=== PATIENT | female | born 1955 | race Caucasian/White ===

== ENCOUNTER 2019-05-11 13:34 | Emergency (ER) | payer OTHER, SELFPAY ==
--- NOTE | ~2019-05-11 | XR_ITS ---
EXAMINATION: XR chest 2V DATE: 05/11/2019 14:40 INDICATION: Chest pain TECHNIQUE: PA and lateral views of the chest are obtained. COMPARISON: 06/30/1913 FINDINGS: The lungs are hyperinflated but free of acute opacities. There are unchanged nodules and sc arring of the left upper lobe. There is no pleural effusion or pneumothorax. The cardiomediastinal si lhouette is normal. There is mild thoracic spondylosis. IMPRESSION: 1. Hyperinflation without acute cardiopulmonary abnormality. Reviewed, dictated and finalized at location A.
--- NOTE | 2019-05-11 13:58 | ED.CHESTPAIN ---
HPI - Chest Pain General Chief Complaint: Chest Pain Stated Complaint: chest pain Time Seen by Provider: 05/11/19 13:54 Source: patient Mode of arrival: ambulatory Limitations: no limitations History of Present Illness HPI narrative: Pt is a 63 y/o female who presents to the ED with c/o lt sided CP that started last night at 8PM. She states that she was watching T.V. when she noticed the pain. She reports associated excessive yawning and notes that when she went to go to sleep at 1030PM she was not able to d/t her yawning. Pt states that she had a similar episode 7 weeks ago. This morning, the pt worked in her garden for 45 minutes and went on a 2 mile walk, which is her usual. Pt reports pain when taking a deep breath, but she denies sweats, fever, chills, N/V, or a cough. She notes that she had pleurisy about 26 years ago but it does not feel the same. Pt has a H/O HLD and hypothyroid. MD complaint: chest pain Onset (ago): hour(s) (17) Onset: during rest Pain location: left chest Pain radiation: none Associated symptoms: other (excessive yawning and pain with deep breath) Related Data Home Medications Medication Instructions Recorded Confirmed alendronate mg PO 05/11/19 atorvastatin 05/11/19 levothyroxine [Synthroid] 05/11/19 Allergies Allergy/AdvReac Type Severity Reaction Status Date / Time ciprofloxacin Allergy Unknown Unknown Verified 05/11/19 14:36 Review of Systems Review of Systems: All systems reviewed & are unremarkable except as noted in HPI and below Constitutional: Constitutional: Denies chills, Denies fever(s) and Denies other (sweats) Cardiovascular: Cardiovascular: Reports chest pain and Reports other (CP with deep breath) Respiratory: Respiratory: Denies cough and Reports other (excessive yawning) Gastrointestinal: Gastrointestinal: Denies nausea and Denies vomiting PMFSH Past Medical History Medical History (Updated 05/11/19 @ 17:29 by Dwight Maynrad MD) Anemia DVT (deep venous thrombosis) HLD (hyperlipidemia) Hypothyroid UTI (urinary tract infection) Surgical History Surgical History (Updated 05/11/19 @ 14:19 by Juan Canales) No significant past surgical history Family History Family History (Updated 04/01/12 @ 13:59 by DOCTOR UNKNOWN) Other Family history of seizure disorder Social History Social History Smoking status: Never smoker Alcohol intake: current Gender identity (if verbalized by the patient): Female Exam Const: General: healthy appearing, no acute distress and well developed Nutritional Appearance: well nourished Orientation/consciousness: patient oriented x3 (alert) and Other orientation findings (Alert) Limitations: no limitations HENMT: Head: normocephalic and atraumatic Ears: external ears normal General nose exam: No nasal discharge present and no epistaxis Face and sinus: face symmetric Mouth: Yes lip normal Eyes: Conjunctivae: conjunctivae normal Sclera: sclerae normal EOM: EOMs intact bilaterally Neck: Neck: full ROM Chest: Chest palpation & inspection: no tenderness and other (CP not reproducible with palpation of left chest wall) Resp: Effort & Inspection: normal respiratory effort Auscultation: clear to auscultation bilaterally, no rales, no rhonchi, no wheezes and other (breath sounds equal) Cardio: Rate: regular rate Rhythm: regular rhythm Heart sounds: no gallops and no murmurs GI: Inspection: non-distended GI Palp: No abdominal tenderness and Yes Soft to palpation Auscultation: other (bowel sounds present) : General: Yes no CVA tenderness Back/Spine/Pelvis: Back: no CVA tenderness Thoracic/Lumbar Spine: thoracic and lumbar spine normal to inspection Skin: General skin exam: normal color and no rashes or lesions noted Neuro: General: patient oriented x3 (alert), moves all extremities and no focal motor deficits Cranial nerves: Yes facial symmetry Speech: n
[2019-05-11 14:30] VITALS: BP 144/74; PULSE 82; RESP 18; TEMP 36.1; O2SAT 100
[2019-05-11 14:34] VITALS: PULSE 82
[2019-05-11 14:38] LABS: Basophils Percent Auto 0.3 % (0.2-1.2); Eosinophils Absolute Auto 0.1 K/mm3 (0-0.3); Eosinophils Percent Auto 1.3 % (0-4.4); Hematocrit 39.2 % (37.0-47.0); Hemoglobin 12.3 g/dL (12.0-15.0); Immature Granulocyte Absolute 0.02 K/mm3 (0.00-0.031); Immature Granulocyte Percent A 0.3 % (0-0.5); Lymphocytes Absolute Auto 1.31 K/mm3 (0.9-3.2); Lymphocytes Percent Auto 17.5 % (18.3-44.2); Mean Corpuscular HGB Conc 31.4 g/dl (32-36); Mean Corpuscular Hemoglobin 29.9 pg (26-34); Mean Corpuscular Volume 95.1 fl (80-100); Mean Platelet Volume 10.7 fl (7.4-10.4); Monocytes Absolute Auto 0.5 K/mm3 (0.1-0.6); Monocytes Percent Auto 6.6 % (2.6-8.5); Neutrophils Absolute Auto 5.5 K/mm3 (1.3-6.7); Platelet Count Result 203 k/mm3 (150-375); Red Blood Count 4.12 M/mm3 (4.2-5.4); Red Cell Distribution Width 13.3 % (11.5-14.5); White Blood Count 7.5 K/mm3 (4.5-10.0)
[2019-05-11 14:52] LABS: Prothrombin Time 12.4 Seconds (11.1-14.7)
[2019-05-11 14:55] LABS: Blood Urea Nitrogen 22 mg/dL (7-17); Carbon Dioxide 30 mmol/L (22-30); Chloride 104 mmol/L (98-107); D Dimer 0.34 ug/mL (<0.48); Estimated CRCL calculation 54 ml/min; Estimated Glomerular Filt Rate > 60; Glucose 96 mg/dL (65-105); Potassium 3.8 mmol/L (3.4-5.0); Sodium 137 mmol/L (137-145)
[2019-05-11] MEDS: KETOROLAC 30 MG/ML VIAL (*BKC) (14:55)
[2019-05-11 15:05] LABS: Troponin I < 0.012 ng/mL (0.000-0.034)
--- NOTE | 2019-05-11 15:38 | ECG_ITS ---
Measurements Intervals [place] Rate: 75 P: 74 W[place]: 151 QRS: 73 QRSD: 92 T: 48 QT: 370 QTc: 415 Interpretive Statements SINUS RHYTHM POSSIBLE LEFT ATRIAL ENLARGEMENT BORDERLINE ECG Electronically Signed On 05-11-2019 17:37:17 CDT by Erickson Shepherd D.O.
[2019-05-11 16:11] VITALS: BP 132/84; PULSE 77; RESP 18; O2SAT 98
[2019-05-11 17:38] VITALS: BP 121/77; PULSE 73; RESP 17; O2SAT 98
== END 2019-05-11 18:02 | disposition home or self-care (01) ==
PROVIDERS: Emergency Provider Emergency Medicine; PCP Physician Assistant
DX: R07.89 Other chest pain (principal); Z86.718 Personal history of other venous thrombosis and embolism; E78.5 Hyperlipidemia, unspecified; E03.9 Hypothyroidism, unspecified; Z87.440 Personal history of urinary (tract) infections; R94.31 Abnormal electrocardiogram [ECG] [EKG]
CPT/HCPCS: 36415; 71046; 80048; 84484; 85025; 85380; 85610; 93005; 96374; 99284; J1885

== ENCOUNTER → 2020-01-12 10:52 | Outpatient (CLI) | payer OTHER, SELFPAY ==
--- NOTE | ~2020-01-12 | CT_ITS ---
EXAMINATION: CT abdomen pelvis wo/w con DATE: 01/12/2020 11:39 INDICATION: Microscopic hematuria TECHNIQUE: Computed tomography (CT) of the abdomen and pelvis was performed without and with 130 cc O mnipaque 350 intravenous contrast. The dose-length product was 702.42 mGy-cm. Automated exposure cont rol and iterative reconstruction technique were employed. COMPARISON: CT dated 08/26/2015 FINDINGS: Lung bases are unremarkable. No significant pleural or pericardial effusion. No significant vascular abnormality. No lymphadenopathy. There are small low-density lesions in the left kidney, mo st likely cysts. The liver, spleen, pancreas, adrenal glands and kidneys are unremarkable. Gallbladder is present. Non obstructive bowel gas pattern. Moderate colonic fecal loading. No renal stones or ureteral stones. No hydronephrosis. Bladder is unremarkable. No free air or free fluid. No acute osseous abnormality. No significant vascular abnormality. No lymphadenopathy. No free air and free fluid. IMPRESSION: 1. No acute abnormality. No findings to account for hematuria. Reviewed, dictated and finalized at location B. [employer]
[2020-01-12 11:15] LABS: Estimated Glomerular Filt Rate > 60
== END ==
PROVIDERS: PCP Physician Assistant; Visit Provider Physician Assistant
DX: R31.29 Other microscopic hematuria (principal)
CPT/HCPCS: 74178; Q9967

== ENCOUNTER → 2020-02-25 12:25 | Outpatient (CLI) | payer OTHER, SELFPAY ==
--- NOTE | ~2020-02-25 | DEXA_ITS ---
Bone Density Report Name: Ashley Charles Age: 64 Sex: Female Ethnicity: White Date of : 1955 Indication: osteopenia; monitoring treatment; postmenopausal Referring Provider: Fauzia, Néstor Study: Bone densitometry was performed. Exam Date: February 25, 2020 Accession number: [id number] Bone Density: Region BMD T-score Z-score Classification AP Spine (L1-L4) 0.813 -2.1 -0.4 Osteopenia Femoral Neck (Left) 0.635 -1.9 -0.4 Osteopenia Total Hip (Left) 0.771 -1.4 -0.2 Osteopenia Femoral Neck (Right) 0.630 -2.0 -0.5 Osteopenia Total Hip (Right) 0.739 -1.7 -0.5 Osteopenia Total Hip Mean 0.755 -1.6 -0.4 Osteopenia World Health Organization criteria for BMD impression classify patients as: Normal (T-score at or above -1.0), Osteopenia (T-score between -1.0 and -2.5), or Osteoporosis (T-score at or below -2.5). 10-year Fracture Risk: FRAX not reported because: Treated for osteoporosis Previous Exams: Region Exam Age BMD T-score BMD Change BMD Change Date g/cm2 vs Baseline vs Previous AP Spine(L1-L4) 02/25/2020 64 0.813 -2.1 0.047* 0.015 08/27/2017 62 0.798 -2.3 0.032* 0.032* 04/18/2011 55 0.766 -2.6 Total Hip(Left) 02/25/2020 64 0.771 -1.4 0.010 -0.018 08/27/2017 62 0.789 -1.3 0.028* 0.028* 04/18/2011 55 0.761 -1.5 Total Hip(Right) 02/25/2020 64 0.739 -1.7 0.014 0.003 08/27/2017 62 0.736 -1.7 0.011 0.011 04/18/2011 55 0.725 -1.8 *Denotes significance at 95% confidence level, LSC for AP Spine = 0.022 g/cm2, LSC for Total Hip = 0.027 g/cm2 Clinical Information Provided by Patient: Is being treated for osteoporosis Has used the following medications: Fosamax (i.e. alendronate), Vitamin D, Calcium, SYNTHROID Patient maximum height was 63.5 Menopause Age: 54 Drinks caffeinated beverages Onset of menses at age 13 Number of children 2 Impression: The patient has low bone mass, based on the Total Spine T-score. No significant bone loss was observed. Discussion: PATIENT UNDER TREATMENT WITH NO SIGNIFICANT BMD LOSS SINCE LAST EXAM. In an untreated patient, BMD typically declines with age. A lack of decline or gain is usually a sign that treatment is efficacious and fracture risk is reduced. It is important to ask patients whether they are taking their medications and to encourage continued and appropriate complian
== END ==
PROVIDERS: PCP Physician Assistant; Visit Provider Physician Assistant
DX: M85.88 Other specified disorders of bone density and structure, other site (principal); M85.852 Other specified disorders of bone density and structure, left thigh; M85.851 Other specified disorders of bone density and structure, right thigh
CPT/HCPCS: 77080

== ENCOUNTER → 2020-07-20 15:16 | Outpatient (CLI) | payer MEDICARE, SELFPAY ==
--- NOTE | ~2020-07-20 | MM_ITS ---
EXAMINATION: MM screening lit BI w jeanette HISTORY: Screening mammogram TECHNIQUE: Craniocaudal and mediolateral oblique 3-D tomosynthesis images were obtained and synthetic 2-D images were generated. CAD analysis was submitted and interpreted. COMPARISON: No prior mammogram is available for comparison at this institution. BREAST PARENCHYMAL COMPOSITION: The breasts are heterogeneously dense, which may obscure small masses . FINDINGS: There is no evidence of suspicious mass, calcification, or architectural distortion to sugg est malignancy in either breast. There has been no suspicious interval change. IMPRESSION: 1. No mammographic evidence of malignancy. 2. Recommend routine screening mammography in one year. BI-RADS Category 1: Negative Reviewed, dictated and finalized at location A.
== END ==
PROVIDERS: PCP Physician Assistant; Visit Provider Nurse Practitioner
DX: Z12.31 Encounter for screening mammogram for malignant neoplasm of breast (principal)
CPT/HCPCS: 77063; 77067

== ENCOUNTER → 2021-12-07 09:14 | Outpatient (CLI) | payer MEDICARE, SELFPAY ==
--- NOTE | ~2021-12-07 | CT_ITS ---
EXAMINATION: CT abdomen pelvis w con DATE: 12/07/2021 09:46 INDICATION: Right lower quadrant bulge. Right inguinal hernia is suspected. TECHNIQUE: Computed tomography (CT) of the abdomen and pelvis was performed with 100 CC Omnipaque 350 intravenous contrast. Automated exposure control and iterative reconstruction technique were employe d. Exam dose: 309.78 mGy-cm total exam DLP. COMPARISON: None. FINDINGS: There is minimal bilateral lower lobe dependent atelectasis, right greater than left. No co nsolidation at the lung bases. Normal heart size. No pericardial or pleural effusion. The liver, spleen, pancreas, adrenal glands are unremarkable. No bile duct or pancreatic duct dilatat ion. Several probable renal cysts, measuring up to 8 mm. No urinary tract calculus or hydroureteronephrosi s. Normal caliber of the abdominal aorta. No intraperitoneal or retroperitoneal or pelvic mass lesion or adenopathy or ascites. There is a prominent of fecal material in the colon but no bowel obstruction. No intraperitoneal free air. The uterus, adnexal areas and urinary bladder are unremarkable. Small fat-containing inguinal hernia. No inguinal hernias detected. No suspicious osteolytic or osteoblastic lesions. IMPRESSION: 8 mm or smaller renal cysts Reviewed, dictated and finalized at Location A. Reviewed, dictated and finalized at location A. IMPRESSION: 8 mm or smaller renal cysts
[2021-12-07 09:36] LABS: Estimated Glomerular Filt Rate > 60
== END ==
PROVIDERS: PCP Physician Assistant; Visit Provider Physician Assistant
DX: K40.90 Unilateral inguinal hernia, without obstruction or gangrene, not specified as recurrent (principal); N28.1 Cyst of kidney, acquired
CPT/HCPCS: 74177; Q9967

== ENCOUNTER → 2022-03-21 15:20 | Outpatient (CLI) | payer MEDICARE, SELFPAY ==
--- NOTE | ~2022-03-21 | DEXA_ITS ---
Bone Density Report Name: EIR MEANS Age: 66 Sex: Female Ethnicity: White Date of : 1955 Indication: osteopenia; monitoring treatment; postmenopausal Referring Provider: BALDO, CHEL Study: Bone densitometry was performed. Exam Date: March 21, 2022 Accession number: [id number] Bone Density: Region BMD T-score Z-score Classification AP Spine (L1-L4) 0.811 -2.1 -0.3 Osteopenia Femoral Neck (Left) 0.628 -2.0 -0.4 Osteopenia Total Hip (Left) 0.784 -1.3 0.0 Osteopenia Femoral Neck (Right) 0.655 -1.7 -0.1 Osteopenia Total Hip (Right) 0.745 -1.6 -0.3 Osteopenia Total Hip Mean 0.765 -1.5 -0.2 Osteopenia World Health Organization criteria for BMD impression classify patients as: Normal (T-score at or above -1.0), Osteopenia (T-score between -1.0 and -2.5), or Osteoporosis (T-score at or below -2.5). 10-year Fracture Risk: FRAX not reported because: Treated for osteoporosis Previous Exams: Region Exam Age BMD T-score BMD Change BMD Change Date g/cm2 vs Baseline vs Previous AP Spine(L1-L4) 03/21/2022 66 0.811 -2.1 0.045* -0.002 02/25/2020 64 0.813 -2.1 0.047* 0.015 08/27/2017 62 0.798 -2.3 0.032* 0.032* 04/18/2011 55 0.766 -2.6 Total Hip(Left) 03/21/2022 66 0.784 -1.3 0.023 0.013 02/25/2020 64 0.771 -1.4 0.010 -0.018 08/27/2017 62 0.789 -1.3 0.028* 0.028* 04/18/2011 55 0.761 -1.5 Total Hip(Right) 03/21/2022 66 0.745 -1.6 0.020 0.006 02/25/2020 64 0.739 -1.7 0.014 0.003 08/27/2017 62 0.736 -1.7 0.011 0.011 04/18/2011 55 0.725 -1.8 *Denotes significance at 95% confidence level, LSC for AP Spine = 0.022 g/cm2, LSC for Total Hip = 0.027 g/cm2 Clinical Information Provided by Patient: Is being treated for osteoporosis Has used the following medications: Fosamax (i.e. alendronate), Vitamin D, Calcium, SYNTHROID Patient maximum height was 63.5 Menopause Age: 54 Drinks caffeinated beverages Onset of menses at age 13 Number of children 2 Impression: The patient has low bone mass, based on the Total Spine T-score. No significant bone loss was observed. Discussion: PATIENT UNDER TREATMENT WITH NO SIGNIFICANT BMD LOSS SINCE LAST EXAM. In an untreated patient, BMD typically declines with age. A lack of decline or gain is usu
== END ==
PROVIDERS: PCP Physician Assistant; Visit Provider Physician Assistant
DX: M85.88 Other specified disorders of bone density and structure, other site (principal); M85.852 Other specified disorders of bone density and structure, left thigh; M85.851 Other specified disorders of bone density and structure, right thigh
CPT/HCPCS: 77080

== ENCOUNTER 2022-03-30 02:09 | Day surgery (SDC) | payer MEDICARE, SELFPAY ==
--- NOTE | 2022-03-23 10:13 | PC.NURSE ---
Report to the Outpatient Waiting Room, entrance under the green pavilion located off [facility], at time __1000 on date _03/30/22 . Planned Procedure Time: __1200 . Time changes happen often and if your time is changed the preop area will call you the afternoon before. - You and your visitor will be asked to self-screen and do not enter if you have any COVID symptoms. - Only one visitor is requested with a max of two and NO children visitors are allowed at this time. - The patient visitor may be requested to leave or wait in car when not with patient due to distancing restrictions. - A mask is optional within the hospital at this time. Patients may have clear liquids (water, carbonated beverages, clear teas, apple juice) until 3 hours prior to surgery (0900 AM) with a maximum of 20 ounces. - No food from midnight until time of surgery - Infants may have breast milk until 4 hours before surgery, infant formula 6 hours prior to surgery. - Children will be allowed to drink immediately following surgery. If applicable, please bring a bottle or sippy cup to assist with drinking. Juice, water, soda, and popsicles are readily available. For infants on formula, please bring formula the day of surgery. Pacifiers are allowed. Take the following medications with a SIP of water the morning of surgery: __LEVOTHYROXINE__ DO NOT STOP ANY OF YOUR OTHER PRESCRIPTION MEDICATIONS PRIOR TO SURGERY ?EXCEPT THE FOLLOWING Medications to discontinue per physician VITAMINS 3 DAYS PRIOR TO SURGERY Date to take last dose___03/26/22 Please no make-up, nail mozambican, hairspray, perfume, deodorant, or body powder the day of surgery. No jewelry (including any body piercings) or valuables the day of surgery, leave them at home. Please take a shower or bath the night before, or the morning of, surgery with an antibacterial soap. Wear comfortable, loose fitting clothing. Children are encouraged to wear pajamas. - Jewelry must be removed prior to entering the operating room. Rings and piercings that are not removed may be cut off. - The hospital will not accept responsibility for valuables. - Please leave all valuables, including medications, at home the day of surgery. If you are going home after surgery, a licensed local combination truck driver must drive you home. - NO public transportation without another adult if you receive anesthesia. - We recommend that an adult stay with you for 24 hours following discharge. - We also recommend that you do not drive, make important decision, drink alcoholic beverages, or take any drugs that were not prescribed by your health care provider for at least 24 hours after your discharge time. For Pediatric surgeries, we recommend two adults accompany the child home. Follow any additional instructions given to you from your surgeon. HIBICLENS SHOWER NIGHT BEFORE AND AM OF SURGERY If you or anyone in your household have experienced Covid symptoms in the past week, please notify your surgeon or the nurse liaison at the phone number below for possible testing. Telephone instructions given to ___PATIENT and asked if any additional questions and then verbalized understanding. Patient advised to call surgeon office or pre surgery nurse liaison [phone] if any additional questions.
--- NOTE | 2022-03-27 13:58 | PM.SD2 ---
Same Day Admit/Disch: HPI History of Present Illness Narrative: Ashley Charles is a 66 year old female who moved her mother into assisted living last October. She moved a lot of boxes and afterwards noticed some discomfort and a bulge in the right groin. She was seen in the office and found to have a reducible right inguinal hernia. She is taken to surgery at this time for right inguinal hernia repair as an outpatient under anesthesia. [facility] Past Medical History Medical History Anemia DVT (deep venous thrombosis) HLD (hyperlipidemia) Hypothyroid UTI (urinary tract infection) Surgical History Surgical History No significant past surgical history Family History Family History Other Family history of seizure disorder Social History Social History Smoking status: Never smoker Second hand tobacco smoke exposure: No Alcohol intake: current Drinks per week: 10 Alcohol use details: WINE Substance use: never Substance use type: does not use Living arrangements: with family Gender identity (if verbalized by the patient): Female Spiritual care concerns: No Same Day Admit/Disch: Med Pre-admit Medications Home Medications Medication Instructions Recorded Confirmed Type alendronate 70 mg tablet 70 mg PO WEEKLY 05/11/19 03/23/22 History atorvastatin 20 mg tablet 20 mg EVERY OTHER DAY 05/11/19 03/23/22 History levothyroxine 100 mcg tablet 100 mcg QAM 05/11/19 03/30/22 History (Synthroid) chlorhexidine gluconate 4 % See Rx Instructions .Route 02/13/22 03/23/22 Rx topical liquid (Hibiclens) .COMPLEX #118 mL aspirin 81 mg tablet,delayed 81 mg PO HS 03/23/22 03/23/22 History release calcium carbonate 600 mg-vitamin 1 tablet PO DAILY 03/23/22 03/23/22 History D3 5 mcg (200 unit) tablet cholecalciferol (vitamin D3) 25 25 mcg PO DAILY 03/23/22 03/23/22 History mcg (1,000 unit) capsule cyanocobalamin (vitamin B-12) 500 500 mcg PO DAILY 03/23/22 03/23/22 History mcg tablet estradiol 10 mcg vaginal insert 10 mcg vaginal 2XW 03/23/22 03/23/22 History hydrocodone 5 mg-acetaminophen 325 1 - 2 tablet PO Q6H PRN pain #7 03/30/22 Rx mg tablet tabs ibuprofen 600 mg tablet 600 mg PO Q6H PRN pain #14 tabs 03/30/22 Rx Exam Const: General: comfortable, no acute distress, alert and awake HENMT: Head: normocephalic and atraumatic Mouth: Yes Normal oral and palatal mucosa present Eyes: Conjunctivae: conjunctivae normal Pupils: Equal, round and reactive pupils present EOM: EOMs intact bilaterally Neck: Neck: normal visual inspection, no lymphadenopathy and nontender Resp: Effort & Inspection: normal respiratory effort Auscultation: clear to auscultation bilaterally Cardio: Rate: regular rate Rhythm: regular rhythm Heart sounds: no gallops, no murmurs and no rubs GI: Inspection: non-distended and visible herniation (Right groin) GI Palp: Yes Soft to palpation, No Tenderness to palpation present (GI), No Hepatomegaly present, No Splenomegaly present and Yes Hernia present (Reducible right inguinal hernia) Auscultation: normal bowel sounds Skin: Lesions: no lesions Rashes: no rashes Neuro: General: no focal motor deficits and CN's II-XI intact bilaterally Cranial nerves: Yes Equal, round and reactive pupils present, Yes Bilaterally intact EOM present, Yes facial symmetry and Yes Midline tongue present Speech: normal speech Motor exam (neuro): 5/5 motor strength present throughout and Motor abnormalities not present Extrem: General: no clubbing, cyanosis or edema and edema Psych: Affect: normal affect Thought process: Normal thought process present Insight: Good insight present (Psych) DS: Summary Time Spent with Patient Time attestation: Total time spent providing
[2022-03-30] MEDS: KETOROLAC 15 MG/ML VIAL (*BKC) IV PUSH (11:00)
[2022-03-30] MEDS: ACETAMINOPHEN 500 MG TABLET 1000 MG PO (11:00)
[2022-03-30 11:03] VITALS: BP 117/71; PULSE 74; RESP 14; TEMP 36.8; O2SAT 100
--- NOTE | 2022-03-30 11:43 | WPDHPUPDATE1 ---
History and Physical Update Update Date/Time: 03/30/22 11:43 History and Physical has been reviewed, including an updated exam of the patient. There are NO changes in the patient's condition. Risks, benefits, and alternatives have been discussed and questions answered. Patient agrees to proceed with procedure.
--- NOTE | 2022-03-30 11:55 | WPDANESEPPF ---
Anes - Initial Pre Proc Eval Procedure: Operation Date: 03/30/22 12:00 Proposed Procedures p Right Inguinal Hernia Repair - Niraj Wallace MD Date/Time: 03/30/22 11:55 Surgeon: Niraj Wallace MD Pre Op Diagnosis: Rt Ing Hernia Patient Data Age: 66 Gender: F Height: 1.61 m Weight: 53.5 kg Last Vital Signs Temp 98.3 F 03/30/22 11:03 Pulse 74 03/30/22 11:03 Resp 14 03/30/22 11:03 BP 117/71 03/30/22 11:03 Pulse Ox 100 03/30/22 11:03 O2 Del Method Room Air 03/30/22 11:03 Allergies Allergy/AdvReac Type Severity Reaction Status Date / Time No Known Allergies Allergy Verified 03/30/22 11:14 Home Medications Medication Instructions Recorded Confirmed Type alendronate 70 mg tablet 70 mg PO WEEKLY 05/11/19 03/23/22 History atorvastatin 20 mg tablet 20 mg EVERY OTHER DAY 05/11/19 03/23/22 History levothyroxine 100 mcg tablet 100 mcg QAM 05/11/19 03/30/22 History (Synthroid) chlorhexidine gluconate 4 % See Rx Instructions .Route 02/13/22 03/23/22 Rx topical liquid (Hibiclens) .COMPLEX #118 mL aspirin 81 mg tablet,delayed 81 mg PO HS 03/23/22 03/23/22 History release calcium carbonate 600 mg-vitamin 1 tablet PO DAILY 03/23/22 03/23/22 History D3 5 mcg (200 unit) tablet cholecalciferol (vitamin D3) 25 25 mcg PO DAILY 03/23/22 03/23/22 History mcg (1,000 unit) capsule cyanocobalamin (vitamin B-12) 500 500 mcg PO DAILY 03/23/22 03/23/22 History mcg tablet estradiol 10 mcg vaginal insert 10 mcg vaginal 2XW 03/23/22 03/23/22 History Patient hx anesthesia problems: none Family hx anesthesia problems: none Results Review: All pre-operative results and documents have been reviewed as part of the pre-operative evaluation. [facility] Past Medical History Medical History Anemia DVT (deep venous thrombosis) HLD (hyperlipidemia) Hypothyroid UTI (urinary tract infection) Surgical History Surgical History No significant past surgical history Family History Family History Other Family history of seizure disorder Social History Social History Smoking status: Never smoker Second hand tobacco smoke exposure: No Alcohol intake: current Drinks per week: 10 Alcohol use details: WINE Substance use: never Substance use type: does not use Living arrangements: with family Gender identity (if verbalized by the patient): Female Spiritual care concerns: No Anes - Eval Final PreProcedure Day of Procedure 03/30/22 11:55 Patient weight: normal Heart: regular rate and rhythm Lungs: clear to auscultation Airway: Mallampati scale class II Neurological: alert and oriented Last oral intake: >/= 8 hours ASA classification: II Emergent: no Anesthetic plan: proceed Anesthesia type and monitoring: general GIVS and standard monitoring Results Review: All pre-operative results and documents have been reviewed as part of the pre-operative evaluation. Informed Consent: The patient's anesthetic plan and its attendant risks and benefits were discussed with the patient/family/POA. Questions were solicited and answers provided to the satisfaction of the patient/family/POA.
[2022-03-30] MEDS: LACTATED RINGERS 1,000 ML 30 ML IV CONT ×2 (12:00→13:07)
[2022-03-30] MEDS: ceFAZolin 2 GM/D5W 50 ML 2 GM/50 ML BAG IVPB (12:06)
[2022-03-30] MEDS: LIDO 1%/EPINEPHRINE 1:100,000 20 ML VIAL INFILTRATE (12:59)
[2022-03-30 13:07] VITALS: BP 87/52; PULSE 97; RESP 19; O2SAT 98
--- NOTE | 2022-03-30 13:10 | P.OP_ITS ---
Procedure Note - Detailed Date of Procedure 03/30/22 Pre-op Diagnosis Rt Ing Hernia Post-op Diagnosis Same Procedure Performed Right inguinal hernia repair with PerFix Light plug and patch Surgeon Niraj Wallace MD Curriculum Coach Tess PARISI Anesthesia General ( G IV S) and Local ( 1% lidocaine with epinephrine) Indications patient was moving a lot of heavy boxes and noticed some pain in her right groin. Soon thereafter noticed a bulge in the area. She was seen in the office and found to have a right inguinal hernia. She is taken to surgery now for repair Findings an indirect right inguinal hernia was noted. Description of Procedure Patient was taken to surgery and anesthesia was introduced. The right groin was prepped and draped. The proposed incision was marked on the skin. Local was infiltrated into the area of the anticipated incision and in the deeper subcutaneous tissues. Incision was made and dissection was carried down through the subcutaneous. Crossing veins were cauterized and divided. Dissection was carried through Devorah's fascia and down to the external oblique aponeurosis. The aponeurosis was exposed as was the external ring. We infiltrated additional local deep to the aponeurosis in the area of the inguinal canal. The aponeurosis was then opened laterally and extended medially through the external ring. The leaves of the aponeurosis were then carefully dissected free from the inguinal canal contents. The hernia as well as some associated lipomatous tissue were found easily. We dissected these free from the round ligament and dissected back to the internal ring. I removed the lipomatous tissue and amputated it with the cautery. It was discarded. I then dissected out the hernia sac more thoroughly. I tried to dissected from the round ligament but the round ligament was actually part of the lateral wall of the hernia sac. I then amputated the round ligament just away from the hernia sac. I then dissected the hernia sac back to a high dissection. I removed some additional lipomatous tissue from the area. The sac was then dunked into the retroperitoneum. The ilioinguinal nerve was carefully preserved and was left attached to the round ligament over most of the inguinal canal. A large PerFix Light plug was then placed in the defect. The edges of the plug was sutured to the transversalis fascia with interrupted 3-0 Vicryl suture. The defect was partially closed with 3-0 Vicryl suture as well. We then cut the patch to the appropriate size and laid over the inguinal canal floor. The lateral leaves p assed beyond the internal ring. The 1st piece of Xaracoll was then placed over the patch. The ilioinguinal nerve in the rest of the round ligament was then laid over the Xaracoll. The external oblique aponeurosis was then closed with interrupted 3-0 Vicryl suture. The 2nd piece of Xaracoll was placed over the aponeurosis. Devorah's fascia was closed with interrupted 3-0 Vicryl suture. The last pieces Xaracoll was placed in the subcutaneous. The skin was loosely approximated with subcuticular 4-0 Vicryl skin stitches. Skin was finally closed with a running 4-0 Monocryl skin suture. The wound was dressed with Exofin surgical adhesive. The patient was awakened and taken to outpatient surgery in good condition. Sponge and needle counts were correct x2. Estimated Blood Loss -2 Drains No Packing No Pathology None sent Complications No immediate complications Condition Stable Disposition Same day [facility] Billing Surgery - Charge Forward: Surgery Billing ( Right inguinal hernia repair)
[2022-03-30 13:30] VITALS: BP 107/54; PULSE 77; RESP 18
[2022-03-30 14:00] VITALS: BP 105/64; PULSE 75; RESP 18
== END 2022-03-30 14:25 | disposition home or self-care (01) ==
PROVIDERS: PCP Physician Assistant; Visit Provider Surgery
PROC: (CPT 49505; principal; 2022-03-30 12:00)
DX: K40.90 Unilateral inguinal hernia, without obstruction or gangrene, not specified as recurrent (principal); E03.9 Hypothyroidism, unspecified; E78.5 Hyperlipidemia, unspecified; Z86.718 Personal history of other venous thrombosis and embolism; Z79.82 Long term (current) use of aspirin
CPT/HCPCS: 49505; A9270; C1781; J0690; J1885; J2704; J3010; J7120

== ENCOUNTER → 2022-08-22 15:21 | Outpatient (CLI) | payer MEDICARE, SELFPAY ==
--- NOTE | ~2022-08-22 | MM_ITS ---
EXAMINATION: MM screening lit BI w jeanette HISTORY: Screening mammogram TECHNIQUE: Craniocaudal and mediolateral oblique 3-D tomosynthesis images were obtained and synthetic 2-D images were generated. CAD analysis was submitted and interpreted. COMPARISON: 07/20/2020 and 06/26/2018 BREAST PARENCHYMAL COMPOSITION:The breasts are heterogeneously dense, which may obscure small masses. FINDINGS: No suspicious mass, calcification, or architectural distortion are identified in either sherman ast to suggest malignancy. There has been no suspicious interval change. IMPRESSION: No mammographic evidence of malignancy. Recommend routine screening mammography in one year. BI-RADS Category 1: Negative Reviewed, dictated and finalized at location .
== END ==
PROVIDERS: PCP Nurse Practitioner; Visit Provider Nurse Practitioner
DX: Z12.31 Encounter for screening mammogram for malignant neoplasm of breast (principal)
CPT/HCPCS: 77063; 77067

== ENCOUNTER 2023-10-15 08:23 | Emergency (ER) | payer MEDICARE, SELFPAY ==
[2023-10-15 08:39] VITALS: BP 138/70; PULSE 80; RESP 16; TEMP 36.9; O2SAT 100
--- NOTE | 2023-10-15 08:51 | ED.GENADULT ---
HPI - General Adult General Chief complaint: Unspecified Stated complaint: pain left side by ribs Time Seen by Provider: 10/15/23 09:02 Source: patient Mode of arrival: ambulatory Limitations: no limitations History of Present Illness HPI narrative: 68-year-old female presents with concern for left chest wall pain. She reports pain is a 1/10 at rest but when she takes deep breath or turns in certain ways it increases. She denies any redness, warmth, rash, bruising in the area. Denies tenderness. She denies injury or trauma. Denies any recent cough, shortness of breath. Denies palpitations. She reports history of pleurisy many years ago. Reports ibuprofen improves her symptoms. MD complaint: Chest wall pain Related Data Home Medications Medication Instructions Recorded Confirmed alendronate 70 mg tablet 70 mg PO WEEKLY 05/11/19 10/15/23 atorvastatin 20 mg tablet 20 mg EVERY OTHER DAY 05/11/19 10/15/23 aspirin 81 mg tablet,delayed 81 mg PO HS 03/23/22 10/15/23 release calcium carbonate 600 mg-vitamin 1 tablet PO DAILY 03/23/22 10/15/23 D3 5 mcg (200 unit) tablet cholecalciferol (vitamin D3) 25 25 mcg PO DAILY 03/23/22 10/15/23 mcg (1,000 unit) capsule cyanocobalamin (vitamin B-12) 500 500 mcg PO DAILY 03/23/22 10/15/23 mcg tablet estradiol 10 mcg vaginal insert 10 mcg vaginal 2XW 03/23/22 10/15/23 ciprofloxacin HCl 500 mg tablet 500 mg PO DAILY 10/15/23 10/15/23 levothyroxine 88 mcg tablet 88 mcg PO DAILY 10/15/23 10/15/23 Allergies Allergy/AdvReac Type Severity Reaction Status Date / Time No Known Allergies Allergy Verified 10/15/23 08:37 Review of Systems Review of Systems: CONSTITUTIONAL: Denies malaise, chills, sweats, or fever. EYES: Denies visual changes, redness, or discharge. CARDIOVASCULAR: Denies chest pain, palpitations, or edema. Reports left chest wall pain with breathing RESPIRATORY: Denies cough or dyspnea. GASTROINTESTINAL: Denies abdominal pain, nausea, vomiting SKIN: Denies rash or itching. MUSCULOSKELETAL: Denies back pain All systems reviewed & are unremarkable except as noted in HPI and below PMFSH Past Medical History Medical History Anemia DVT (deep venous thrombosis) HLD (hyperlipidemia) Hypothyroid UTI (urinary tract infection) Surgical History Surgical History H/O right inguinal hernia repair 03/30/22 Right inguinal hernia repair with PerFix Light plug and patch Family History Family History Other Family history of seizure disorder Social History Social History Smoking status: Never smoker Second hand tobacco smoke exposure: No Alcohol intake: current Drinks per week: 10 Alcohol use details: WINE Substance use: never Substance use type: does not use Living arrangements: with family Gender identity (if verbalized by the patient): Female Spiritual care concerns: No Comments At time of signature, agree with nursing past medical, surgical, social and family history. There is no relevant family history pertinent to the presenting complaint Exam Narrative: GENERAL: Well-appearing, well-nourished, and in no acute distress. HEAD: Normocephalic, atraumatic. EYES: PERRLA, sclera clear ENT: Nares clear. Mucous membranes moist. NECK: Supple. No lymphadenopathy. CHEST: No respiratory distress. Clear to auscultation. No bony deformities, no asymmetry. Speaks in full sentences. HEART: Regular rate and rhythm. No murmur heard. Normal peripheral pulses. EXTREMITIES: Normal range of motion. No edema. Normal strength and sensation. SKIN: Warm, dry, no visible rash, bruising, redness, warmth to the chest wall. NEURO: Alert and oriented x3. PSYCH: Normal mood and affect Course Course Emergency Course: Patient is aware o
--- NOTE | 2023-10-15 09:02 | ECG_ITS ---
Test Date: 2023-10-15 09:15:05 Measurements Intervals [place] Rate: 70 P: 81 LA: 159 QRS: 81 QRSD: 102 T: 70 QT: 359 QTc: 390 Interpretive Statements SINUS RHYTHM POSSIBLE LEFT ATRIAL ENLARGEMENT BASELINE ARTIFACT- I, AVL BORDERLINE ECG No previous ECG available for comparison Electronically Signed On 10-15-2023 10:43:12 CDT by Erickson Shepherd D.O.
== END 2023-10-15 09:20 | disposition home or self-care (01) ==
PROVIDERS: Emergency Provider Nurse Practitioner; PCP Physician Assistant
DX: R07.89 Other chest pain (principal); E78.5 Hyperlipidemia, unspecified; E03.9 Hypothyroidism, unspecified; Z86.718 Personal history of other venous thrombosis and embolism; Z79.82 Long term (current) use of aspirin
CPT/HCPCS: 93005; 99213; G0463

== ENCOUNTER 2024-07-13 07:12 | Day surgery (SDC) | payer MEDICARE, SELFPAY ==
[2023-12-24 08:48] VITALS: BMI 19.6
--- NOTE | 2024-07-13 07:03 | P.PNAN_ITS ---
Anes - Initial Pre Proc Eval Procedure: Operation Date: 07/13/24 09:00 Proposed Procedures p Screening Colonoscopy - Carlos Victor MD Date/Time: 07/13/24 07:03 Surgeon: Carlos Victor MD Pre Op Diagnosis: Z12.11 screening for neoplasm of colon Patient Data Age: 68 Gender: F Height: 1.63 m Weight: 52 kg Allergies Allergy/AdvReac Type Severity Reaction Status Date / Time No Known Allergies Allergy Verified 06/23/24 14:12 Home Medications ?Medication ?Instructions ?Recorded ?Confirmed ?Type alendronate 70 mg tablet 70 mg PO WEEKLY 05/11/19 06/23/24 History atorvastatin 20 mg tablet 20 mg PO EVERY OTHER DAY 05/11/19 06/23/24 History aspirin 81 mg tablet,delayed 81 mg PO HS 03/23/22 06/23/24 History release calcium 600 mg (as 1 tablet PO DAILY 03/23/22 06/23/24 History carbonate)-vitamin D3 5 mcg (200 unit) tablet cholecalciferol (vitamin D3) 25 25 mcg PO DAILY 03/23/22 06/23/24 History mcg (1,000 unit) capsule cyanocobalamin (vitamin B-12) 500 500 mcg PO DAILY 03/23/22 06/23/24 History mcg tablet estradiol 10 mcg vaginal insert 10 mcg vaginal 2XW 03/23/22 06/23/24 History ciprofloxacin HCl 500 mg tablet 500 mg PO DAILY 10/15/23 06/23/24 History ibuprofen 800 mg tablet 800 mg PO Q6H PRN pain #30 tabs 10/15/23 06/23/24 Rx levothyroxine 88 mcg tablet 88 mcg PO DAILY 10/15/23 06/23/24 History Patient hx anesthesia problems: none Family hx anesthesia problems: none Results Review: All pre-operative results and documents have been reviewed as part of the pre- operative evaluation. [facility] Past Medical History Medical History Anemia Hypothyroid UTI (urinary tract infection) DVT (deep venous thrombosis) HLD (hyperlipidemia) Surgical History Surgical History H/O right inguinal hernia repair 03/30/22 Right inguinal hernia repair with PerFix Light plug and patch Family History Family History Other Family history of seizure disorder Social History Social History Social History: Caffeine- coffee daily Smoking status: Never smoker Second hand tobacco smoke exposure: No Alcohol intake: current Drinks per week: 7 Alcohol use details: WINE Substance use: never Substance use type: does not use Living arrangements: with family Additional living arrangements comments: Gender identity (if verbalized by the patient): Female Spiritual care concerns: No Anes - Eval Final PreProcedure Day of Procedure 07/13/24 07:03 Patient weight: normal Heart: regular rate and rhythm Lungs: clear to auscultation and normal air movement Airway: Mallampati scale class II Neurological: alert and oriented Last oral intake: >/= 8 hours ASA classification: IV Emergent: no Anesthetic plan: proceed Anesthesia type and monitoring: general GIVS and standard monitoring Results Review: All pre-operative results and documents have been reviewed as part of the pre- operative evaluation. Informed Consent: The patient's anesthetic plan and its attendant risks and benefits were discussed with the patient/family/POA. Questions were solicited and answers provided to the satisfaction of the patient/family/POA.
--- OUTSIDE RECORDS SUMMARY | 2024-07-13 07:32 | XMS_ITS | Continuity of Care Document ---
Author Organization [facility] Address [address] [place] [address] [facility] [address] [place] [address] Phone Care Team Providers Care Tenant Selector Name Role Phone [employer] Unavailable Unavailable Procedures Procedure Date Office/outpatient Visit, [facility] Advance Directives Directive Yes / No Effective Date File Name No Information Encounters Encounter Description Practice Location Reason(s) For Visit Diagnoses Date Provider Providers Copied on Encounter Office/outpa tient Visit, [facility], [address] [place] [address] Executive [facility] [address], [place], [place], [id number], [place] tel:[phone] [facility] No Information [address] [facility] [address], [place], [address], [place]. tel:[phone] Referring Provider: David Murphy OD, [address] [place], [address]. tel:[phone] Family History Family Member Type Diagnosis Age At Onset No Information Payers Payer name Insurance type Covered alliance party ID Authoriza tilola(s) [employer] SOI CI [id number] Social History Type Description Quantity Date Captured Comments Sex Female Smoking Status No Information Chief Complaint And Reason For Visit No Information Reason For Referral Reason For Referral No Information History Of Present Illness Encounter Date Complaint History Of Prese nt Illness No Information Functional Status Date Functional Assessmen t No Information Instructions Date Instruction Additional Infor mation No Information Assessments Type Assessment Date No Information Patient Care Teams Name Effective Dates (start - stop) Status Members No Information
--- OUTSIDE RECORDS SUMMARY | 2024-07-13 07:32 | XMS_ITS | Data Portability ---
Author Organization [place] - [employer], Main Office Address [address] [place] [address] Care Team Providers Care Mutton Puncher Name Role Phone CHEL BLAND Primary Care Provider CHEL BLAND Referring Provider Assessment Encounter Date Assessment Date Assessment LastModified by Organization Details LastModified Time 12/13/2022 12/13/2022 The patient has basically resolved low back pain in the right sacroiliac region. We talked about proper stretching exercises keeping in good shape and using ibuprofen as necessary to stay ahead of it along with heat or ice depending on which 1 works better for her. She is pleased with the previous treatment results she will modify her activities as necessary if her pain starts to recur and will call us for any further problems difficulties or questions she voiced understanding and agrees above plan for now she is dismissed. Not available 12/13/2022 12:06:50 06/17/2023 06/17/2023 The patient has sacroiliac pain right side. We talked about treatment options today in detail she had like a shot of cortisone therefore under sterile conditions I injected the patient's right sacroiliac bursa in the office with 4 cc of 0.5% bupivacaine and 20 mg of Kenalog. Patient tolerated the procedure well. She will also take ibuprofen 6-800 mg t.i.d. with food if necessary she will see how the shot does. She is going to continue work on her stretching exercises on her own home as well she voiced understanding agrees above plan she will call for any further problems difficulties or questions. Today we reviewed her previous x-rays in detail today as well which did not show any significant findings. Not available 06/17/2023 12:11:57 11/21/2023 11/21/2023 The patient has right sacroiliac pain recurrent in nature. A shot of cortisone 5 months ago gave her excellent relief. She wants to repeat this today therefore under sterile conditions I injected the patient's right sacroiliac bursa in the office with 4 cc 0.5% bupivacaine and 20 mg of Kenalog. Patient tolerated procedure well. We talked about oral anti-inflammator y medication she is taking something [id number] , she declined oral prednisone pills states this made her too shaky and kept her awake all night previously. She is already doing lots of stretching at home she will use heat as necessary. I will see her back as needed she voiced understanding agrees with the above plan she will call for any further problems difficulties or questions. Not available 11/21/2023 12:02:27 03/26/2024 03/26/2024 The patient has low back pain with pain and tenderness of the right sacroiliac region. We talked about treatment options today she has declined oral prednisone pills previously they make her too shaky and keep her awake at night. She just wanted to try a shot of cortisone she will use oral anti-inflammator y medication [id number] if necessary. Under sterile conditions at her request I injected the patient's right sacroiliac bursa in the office with 4 cc 0.5% bupivacaine and 20 mg of Kenalog. Patient tolerated procedure well. I will see her back as needed. If her symptoms worsen or change she is instructed to call she voiced understanding and agreed with the above plan. Not available 03/26/2024 11:38:44 07/09/2024 07/09/2024 The patient has chronic low back pain particularly into the right sacroiliac region that radiates down her leg now. She has been having more pain and aggravation as well as recurrent right hip trochanteric bursitis. She is going to continue with the stretching and icing we have talked about prednisone previously but this makes her too shaky and keeps her awake at night she would rather avoid that. She has been using [id number] anti-inflammator y medication. She has been dealing with this long enough I think it is time to look further into things with an MRI scan of her lumbar spine as well as the right hip. I have advised her if we do too many shots into the right hip trochanteric region this can weaken the tendinous attachment to the trochanteric region. At her request under sterile conditions for pain relief I injected the patient's right hip trochanteric bursa as well as a right sacroiliac bursa in the office with 4 cc 0.5% bupivacaine and 20 mg of Kenalog each for a total of 2 injections. The patient tolerated both injections well. She will follow up after the MRI of the lumbar spine and right hip are done. She voiced understanding agrees with the above plan she will call for any further problems difficulties or questions. Not available 07/09/2024 15:53:06 Plan of Treatment Reminders Order Date Submit Date Provider Last Modified By Organization Details Last Modified Time Details Appointments None recorded. Lab None recorded. Referral None recorded. Procedures injection/a spiration joint/bursa (PROC) 2024 025 [email or web address] 3 In-Office Order, Internal Use Only DO Not Attach Compendium DO Not Attach Compendium, Do Not Delete/merge, [id number] 15:18:17 injection/a spiration joint/bursa (PROC) 2024 025 [email or web address] In-Office Order, Internal Use Only DO Not Attach Compendium DO Not Attach Compendium, Do Not Delete/merge, [id number] 14:46:20 injection/a spiration joint/bursa (PROC) 2024 025 [email or web address] In-Office Order, Internal Use Only DO Not Attach Compendium DO Not Attach Compendium, Do Not Delete/merge, [id number] 11:24:13 injection/a spiration joint/bursa (PROC) 2023 024 [email or web address] In-Office Order, Internal Use Only DO Not Attach Compendium DO Not Attach Compendium, Do Not Delete/merge, [id number] 11:43:17 injection/a spiration joint/bursa (PROC) 2023 024 [email or web address] In-Office Order, Internal Use Only DO Not Attach Compendium DO Not Attach Compendium, Do Not Delete/merge, [id number] 12:15:25 Surgeries None recorded. Imaging MRI, lumbar spine, w/o contrast - give pt a copy of MRI [address], [address], [address], [place], [address], 5 16:04:11 MRI, hip, w/o contrast - give pt a copy of MRI [address], [address], [address], [place], [address], 5 16:04:11 XR, lumbar spine 2023 024 [email or web address] 3 [facility] [place], [facility] [facility] [address], [place], [address], 4 13:08:30 Medication Orders bupivacaine HCl 0.5 % (5 mg/mL) injection solution [address]/Pharmacy [facility]2510, [address] [place], [address], 5 16:04:11 Kenalog 10 mg/mL suspension for injection [address] [place] [address]/Pharmacy #2510, [address] [place], [address], 5 16:04:11 bupivacaine HCl 0.5 % (5 mg/mL) injection solution [address]/Pharmacy [facility]2510, [address] [place], [address], 5 16:04:11 Kenalog 10 mg/mL suspension for injection 2024 025 [facility], [address] [place] [address], [address], 5 16:04:11 bupivacaine HCl 0.5 % (5 mg/mL) injection solution 2024 025 [facility], [address] [place] [address], [address], 5 11:39:17 Kenalog 10 mg/mL suspension for injection 2024 025 [facility], [address] [place] [address], [address], 5 11:39:17 bupivacaine HCl 0.5 % (5 mg/mL) injection solution 2023 024 [facility], [address] [place] [address], [address], 4 12:06:47 Kenalog 10 mg/mL suspension for injection 2023 024 [facility], [address] [place] [address], [address], 4 12:06:47 bupivacaine HCl 0.5 % (5 mg/mL) injection solution 2023 024 [email or web address] [facility], [address] [place] [address], [address], 4 11:34:04 Kenalog 10 mg/mL suspension for injection 2023 024 [email or web address] [facility], [address] [place] [address], [address], 4 11:34:50 Patient TargetsNo targets recorded. Patient InstructionsNo instructions recorded. Reason for Referral None Reported. Results Created Date Observation Date Name Description Value Unit Range Abnormal Flag Note LastModifiedBy Organization Detail LastModifiedTime 11/28/1911/28/2022 LIPID PANEL , STAND LEXY cholesterol, total 207 mg/dL <200 high Not Available [address], [address], 11/28/2022 02:16:45 11/28/1911/28/2022 LIPID PANEL , STAND LEXY HDL cholesterol 93 mg/dL > or = 50 normal Not Available [address], [address], 11/28/2022 02:16:45 11/28/1911/28/2022 LIPID PANEL , STAND LEXY triglyceride s 63 mg/dL <150 normal Not Available [address], [address], 11/28/2022 02:16:45 11/28/1911/28/2022 LIPID PANEL , STAND LEXY LDL-choleste rol 99 mg/dL _(rosi c) normal Refer ence range : <100 Kimberley able range <100 mg/dL for prima ry preve ntion ; <70 mg/dL for patie nts with CHD or diabe tic patie nts with > or = 2 CHD risk facto rs. LDL-C is now calcu lated using the Frances n-Hop kins calcu flakita n, which is a valid ated novel metho d sinai markel carlisle r accur acy than the Fried julia equat ion in the estim ation of LDL-C . Frances adams SS et al. DAVID. 2013; 310(1 9): 2061- 2068 (http ://ed ucati on.Qu daronDi appiriss. com/f aq/FA Q164) Not Available [address], [address], 11/28/2022 02:16:45 11/28/1911/28/2022 LIPID PANEL , STAND LEXY chol/HDLC ratio 2.2 (calc ) <5.0 normal Not Available [address], [address], 11/28/2022 02:16:45 11/28/1911/28/2022 LIPID PANEL , STAND LEXY non HDL cholesterol 114 mg/dL _(rosi c) <130 normal For patie nts with diabe rob plus 1 major ASCVD risk facto r, treat ing to a non-H DL-C goal of <100 mg/dL (LDL- C of <70 mg/dL ) is consi dered a thera peuti c optio n. Not Available [address], [address], 11/28/2022 02:16:45 11/28/1911/28/2022 BASIC METAB OLIC PANEL glucose 93 mg/dL 65-99 normal Fasti ng refer ence inter lainey Not Available [address], [address], 11/28/2022 02:16:49 11/28/1911/28/2022 BASIC METAB OLIC PANEL urea nitrogen (BUN) 22 mg/dL 7-25 normal Not Available [address], [address], 11/28/2022 02:16:49 11/28/1911/28/2022 BASIC METAB OLIC PANEL creatinine 0.77 mg/dL 0.50-1 .05 normal Not Available [address], [address], 11/28/2022 02:16:49 11/28/1911/28/2022 BASIC METAB OLIC PANEL eGFR 84 mL/mi n/1.7 3m2 > or = 60 normal Not Available [address], [address], 11/28/2022 02:16:49 11/28/1911/28/2022 BASIC METAB OLIC PANEL BUN/creatini ne ratio SEE NOTE: (calc ) 6-22 Not Repor loni: BUN and Creat inine are withi n refer ence range . Not Available [address], [address], 11/28/2022 02:16:49 11/28/1911/28/2022 BASIC METAB OLIC PANEL sodium 138 mmol/ L 135-14 6 normal Not Available [address], [address], 11/28/2022 02:16:49 11/28/1911/28/2022 BASIC METAB OLIC PANEL potassium 4.2 mmol/ L 3.5-5. 3 normal Not Available [address], [address], 11/28/2022 02:16:49 11/28/1911/28/2022 BASIC METAB OLIC PANEL chloride 103 mmol/ L 98-110 normal Not Available [address], [address], 11/28/2022 02:16:49 11/28/1911/28/2022 BASIC METAB OLIC PANEL carbon dioxide 30 mmol/ L 20-32 normal Not Available [address], [address], 11/28/2022 02:16:49 11/28/1911/28/2022 BASIC METAB OLIC PANEL calcium 9.8 mg/dL 8.6-10 .4 normal Not Available [address], [address], 11/28/2022 02:16:49 11/28/1911/28/2022 VITAM IN D,25- OH,TO HILDA,I A vitamin D,25-oh,tota l,ia 33 NG/mL 30-100 normal Vitam in D Statu s 25-OH Vitam in D: Defic iency : <20 ng/mL Insuf ficie ncy: 20 - 29 ng/mL Optim al: > or = 30 ng/mL For 25-OH Vitam in D testi ng on patie nts on D2-bazzi pplem entat ion and patie nts for whom quant itati on of D2 and D3 fract ions is requi red, the [employer] Assur eD(TM ) 25-OH VIT D, (D2,D 3), LC/MS /MS is recom bel d: order code 74724 (jeffry ents >2yrs ). See Note 1 Note 1 For addit ional infor chelsea nicholas refer to http: //[facility] dewayne Herman stDia gnost ics.c om/fa q/FAQ 199 (This link is being provi ded for infor navjot joseph/ ben wood purpo ses only. ) Not Available [employer] [address], [address], 11/28/2022 02:16:50 11/28/1911/28/2022 HEPAT IC FUNCT ION PANEL protein, total 6.7 g/dL 6.1-8. 1 normal Not Available [address] [address] [place], [address], 11/28/2022 02:16:51 11/28/1911/28/2022 HEPAT IC FUNCT ION PANEL albumin 4.5 g/dL 3.6-5. 1 normal Not Available [address], [address], 11/28/2022 02:16:51 11/28/1911/28/2022 HEPAT IC FUNCT ION PANEL globulin 2.2 g/dL_ (calc ) 1.9-3. 7 normal Not Available [employer] [address] [address] [place], [address], 11/28/2022 02:16:51 11/28/1911/28/2022 HEPAT IC FUNCT ION PANEL albumin/glob ulin ratio 2.0 (calc ) 1.0-2. 5 normal Not Available [employer] [address] [address] [place], [address], 11/28/2022 02:16:51 11/28/1911/28/2022 HEPAT IC FUNCT ION PANEL bilirubin, total 0.7 mg/dL 0.2-1. 2 normal Not Available [address], [address], 11/28/2022 02:16:51 11/28/1911/28/2022 HEPAT IC FUNCT ION PANEL bilirubin, direct 0.1 mg/dL < or = 0.2 normal Not Available [address], [address], 11/28/2022 02:16:51 11/28/1911/28/2022 HEPAT IC FUNCT ION PANEL bilirubin, indirect 0.6 mg/dL _(rosi c) 0.2-1. 2 normal Not Available [address], [address], 11/28/2022 02:16:51 11/28/1911/28/2022 HEPAT IC FUNCT ION PANEL alkaline phosphatase 44 U/L 37-153 normal Not Available [facility] [address], [address], 11/28/2022 02:16:51 11/28/1911/28/2022 HEPAT IC FUNCT ION PANEL AST 18 U/L 10-35 normal Not Available [address], [address], 11/28/2022 02:16:51 11/28/1911/28/2022 HEPAT IC FUNCT ION PANEL ALT 12 U/L 6-29 normal Not Available [address], [address], 11/28/2022 02:16:51 11/28/19 23 11/28/2022 TSH W/REF LAURA TO FT4 TSH w/reflex to FT4 1.79 mIU/L 0.40-4 .50 normal Not Available [address], [address], 11/28/2022 02:16:52 11/28/1911/28/2022 CBC (INCL UDES DIFF/ PLT) white blood cell count 3.9 thous and/u L 3.8-10 .8 normal Not Available [address], [address], 11/28/2022 02:16:52 11/28/1911/28/2022 CBC (INCL UDES DIFF/ PLT) red blood cell count 4.46 noam on/uL 3.80-5 .10 normal Not Available [address], [address], 11/28/2022 02:16:52 11/28/1911/28/2022 CBC (INCL UDES DIFF/ PLT) hemoglobin 14.0 g/dL 11.7-1 5.5 normal Not Available [address], [address], 11/28/2022 02:16:52 11/28/1911/28/2022 CBC (INCL UDES DIFF/ PLT) hematocrit 43.0 % 35.0-4 5.0 normal Not Available [address], [address], 11/28/2022 02:16:52 11/28/1911/28/2022 CBC (INCL UDES DIFF/ PLT) MCV 96.4 fL 80.0-1 00.0 normal Not Available [address], [address], 11/28/2022 02:16:52 11/28/1911/28/2022 CBC (INCL UDES DIFF/ PLT) MCH 31.4 pg 27.0-3 3.0 normal Not Available [address], [address], 11/28/2022 02:16:52 11/28/1911/28/2022 CBC (INCL UDES DIFF/ PLT) MCHC 32.6 g/dL 32.0-3 6.0 normal Not Available [address], [address], 11/28/2022 02:16:52 11/28/1911/28/2022 CBC (INCL UDES DIFF/ PLT) RDW 12.4 % 11.0-1 5.0 normal Not Available [address], [address], 11/28/2022 02:16:52 11/28/1911/28/2022 CBC (INCL UDES DIFF/ PLT) platelet count 181 thous and/u L 140-40 0 normal Not Available [address], [address], 11/28/2022 02:16:52 11/28/1911/28/2022 CBC (INCL UDES DIFF/ PLT) MPV 10.7 fL 7.5-12 .5 normal Not Available [address], [address], 11/28/2022 02:16:52 11/28/1911/28/2022 CBC (INCL UDES DIFF/ PLT) absolute neutrophils 2009 cells /uL 1500-7 800 normal Not Available [address], [address], 11/28/2022 02:16:52 11/28/1911/28/2022 CBC (INCL UDES DIFF/ PLT) absolute lymphocytes 1424 cells /uL 850-39 00 normal Not Available [address], [address], 11/28/2022 02:16:52 11/28/1911/28/2022 CBC (INCL UDES DIFF/ PLT) absolute monocytes 328 cells /uL 200-95 0 normal Not Available [address], [address], 11/28/2022 02:16:52 11/28/1911/28/2022 CBC (INCL UDES DIFF/ PLT) absolute eosinophils 121 cells /uL 15-500 normal Not Available [address], [address], 11/28/2022 02:16:52 11/28/1911/28/2022 CBC (INCL UDES DIFF/ PLT) absolute basophils 20 cells /uL 0-200 normal Not Available [address], [address], 11/28/2022 02:16:52 11/28/1911/28/2022 CBC (INCL UDES DIFF/ PLT) neutrophils 51.5 % normal Not Available [address], [address], 11/28/2022 02:16:52 11/28/1911/28/2022 CBC (INCL UDES DIFF/ PLT) lymphocytes 36.5 % normal Not Available [address], [address], 11/28/2022 02:16:52 11/28/1911/28/2022 CBC (INCL UDES DIFF/ PLT) monocytes 8.4 % normal Not Available [address], [address], 11/28/2022 02:16:52 11/28/1911/28/2022 CBC (INCL UDES DIFF/ PLT) eosinophils 3.1 % normal Not Available [address], [address], 11/28/2022 02:16:52 11/28/1911/28/2022 CBC (INCL UDES DIFF/ PLT) basophils 0.5 % normal Not Available [employer] [facility] [address] [address], [place], [address], 11/28/2022 02:16:52 11/21/19 24 XR, lumba r spine No observ ation record ed. [facility] [place] [address], [place], [address], 11/21/2023 12:05:08 Result Notes None recorded. Problems Name Problem SNOMED Code Status Onset Date Resolution Date Notes Provider Name and Address Organization Details Recorded Time Pain in right sacroiliac joint 4532698916802 9107 Active 2022 Dorcas Fofana null, [facility] 3 11:26:03 Paresthesi a of lower extremity 761253987 Active 2022 AMADA Torres [address] [place] [address], [address] , [facility] 3 14:06:06 Low back pain 722327887 Active 2023 Sudha Viramontes CNA null, [facility] 4 11:39:43 Compressio n of lumbar nerve root 687986500 Active 2024 Rhina Head null, [facility] [employer] [facility] 5 15:18:45 Tendinitis of left shoulder 0548813265951 103 Active 2020 Not Available [facility] 3 04:50:33 Disorder of shoulder 363845936 Active 2021 Not Available [facility] 3 04:50:33 Disorder of shoulder 832652292 Active 2020 Not Available [facility] 3 04:50:33 Lipedema 271856637 Active 2021 Not Available [facility] 3 04:50:33 Right inguinal hernia 085929682 Active 2021 Not Available [facility] 3 04:50:34 Left lower quadrant pain 345939930 Active Not Available [facility] 3 04:50:34 Adhesive capsulitis of left shoulder 3568311406567 07 Active 2020 Not Available [facility] 3 04:50:34 Tear of medial meniscus of knee 214179915 Active 2021 Not Available [facility] 3 04:50:34 Tear of medial meniscus of knee 446495610 Active 2021 Not Available [facility] 3 04:50:34 Osteopenia 249890748 Active 2018 Not Available [facility] 3 04:50:34 Pain of right hip joint 5581987977787 02 Active 2021 Not Available [facility] 3 04:50:34 Trochanter ic bursitis of right hip 2104213867504 00 Active 2021 Not Available [facility] 3 04:50:34 Vaginal odor 991358674 Active Not Available [facility] 3 04:50:34 Umbilical hernia 484554858 Active 2021 Not Available [facility] 3 04:50:35 Hypothyroi dism 81346284 Active 2018 Not Available [facility] 3 04:50:35 Pain of bilateral knee regions 9330145781605 02 Active 2021 Not Available [facility] 3 04:50:35 Pain of bilateral knee joints 3497639373967 04 Active 2021 Not Available [facility] 3 04:50:35 Atrophic vaginitis 04463797 Active Not Available [facility] 3 04:50:35 Hyperlipid emia 84419116 Active 2018 Not Available [facility] 3 04:50:35 Vulvitis 50836743 Active Not Available [facility] 3 04:50:35 Urinary tract infectious disease 79574493 Active Not Available [facility] 3 04:50:35 Dyspareuni a 28541823 Active Not Available [facility] 3 04:50:35 Candidal vulvovagin itis 44889629 Active Not Available [facility] 3 04:50:36 Postmenopa usal osteopenia 502066800 Active 2022 Not Available [facility] 3 04:50:36 Facial paresthesi a 45286155 Active 2021 Not Available [facility] 3 04:50:36 Problem Notes None recorded. Procedures Surgical History Date Name Laterality Status Provider Name and Address Organization Details Recorded Time 03/30/19 Hernia Repair completed MARIA ESTHER Gutierrez [place] - [facility] [place] [employer] [facility] 05/30/2022 16:27:31 03/21/19 23 Most Recent Bone Density completed Not Available [facility] 04/11/2022 04:42:09 02/11/19 14 Date of Last Colonoscopy completed Not Available [facility] 04/11/2022 04:42:09 02/11/19 14 Colonoscopy completed Not Available [facility] 04/12/19 04:42:13 Imaging Results None recorded. Procedure Notes None recorded. Medical Equipment None Reported. Allergies No known drug allergies Medications Name Sig Start Date Stop Date Status Note LastModified by Organization Details LastModified Time atorvastati n 40 mg tablet Take 1/2 tablet every other night. 12/03 completed Not Available Not Available Not Available prednisone 10 mg tablet PLEASE SEE ATTACHED FOR DETAILED DIRECTION S 11/28 completed Not Available Not Available Not Available atorvastati n 20 mg tablet TAKE 1 TABLET BY MOUTH EVERY DAY active Not Available Not Available No t Available ibuprofen 800 mg tablet TAKE 1 TABLET BY MOUTH EVERY 6 HOURS NEEDED FOR PAIN 11/20 completed Not Available Not Available Not Available ofloxacin 0.3 % eye drops 4 DRP INTO THE EAR(S) THREE TIMES A DAY FOR EXTERNAL OTITIS LEFT WITH EAR UP FOR 1 MINUTE AFTERWARD S active Not Available Not Available No t Available ampicillin 500 mg capsule Take 1 capsule every 6 hours by oral route for 5 days. active Not Available Not Available No t Available hydrocodone 5 mg-acetamin ophen 325 mg tablet TAKE 1-2 TABLETS BY MOUTH EVERY 6 HOURS NEEDED FOR PAIN 05/30 completed Not Available Not Available Not Available bupivacaine HCl 0.5 % (5 mg/mL) injection solution in office 2024 active Not Available Not Available Not Avai lable prednisone 20 mg tablet PLEASE SEE ATTACHED FOR DETAILED DIRECTION S 11/20 completed Not Available Not Available Not Available alendronate 70 mg tablet TAKE 1 TABLET WEEKLY active Not Available Not Available No t Available Synthroid 100 mcg tablet TAKE 1 TABLET DAILY 11/20 completed Not Available Not Available Not Available clobetasol 0.05 % topical cream APPLY TO AFFECTED AREA TWICE A DAY NEEDED 11/20 completed Not Available Not Available Not Available Diflucan 150 mg tablet Take 1 tablet by oral route for 1 day. 08/12 completed Not Available Not Available Not Available Ramez Low Dose Aspirin 81 mg tablet,phan yed release Take 1 tablet every day by oral route. 2017 active Not Available Not Available Not Avai lable ciprofloxac in 250 mg tablet 05/27 completed Not Available Not Available Not Available trimethopri m 100 mg tablet 05/27 completed Not Available Not Available Not Available ciprofloxac in 500 mg tablet TAKE 1 (ONE) TABLET DAILY NEEDED 11/20 completed Not Available Not Available Not Available prednisone 10 mg tablets in a dose pack Take 1 tab by mouth, 3 times a day for 3 daysTake 1 tab by mouth 2 times a day for 2 daysTake 1 tab by mouth once a day for 1 day 11/28 completed Not Available Not Available Not Available nystatin-tr iamcinolone 100,000 unit/gram-0 .1 % topical ointment Apply 1 applicati on twice a day by topical route for 14 days. active Not Available Not Available No t Available levothyroxi ne 88 mcg tablet TAKE 1 TABLET DAILY active Not Available Not Available No t Available famotidine 20 mg tablet TK 1 T PO D 12/03 completed Not Available Not Available Not Available triamcinolo ne acetonide 0.025 % topical cream APPLY A THIN LAYER TO THE AFFECTED AREA(S) BY TOPICAL ROUTE IN THE MORNING active Not Available Not Available No t Available hydrocortis one valerate 0.2 % topical ointment 08/11 completed Not Available Not Available Not Available Kenalog 10 mg/mL suspension for injection in office 2024 active [facility]: 0003- 0494- 20 Not Available Not Available Not Available cephalexin 500 mg capsule 08/11 completed Not Available Not Available Not Available triamcinolo ne acetonide 0.025 % topical ointment APPLY A THIN LAYER TO THE AFFECTED AREA(S) BY TOPICAL ROUTE AT BEDTIME active Not Available Not Available No t Available hydrocortis one 2.5 % topical cream APPLY TWICE DAILY SPARINGLY TO RASH ON EYELIDS AND TO CREASES AROUND MOUTH AND LIPS NEEDED 09/20 completed Not Available Not Available Not Available Synthroid 112 mcg tablet TK 1 T PO ONCE D 09/21 completed Not Available Not Available Not Available ibuprofen 600 mg tablet TAKE 1 TABLET BY MOUTH EVERY 6 HOURS NEEDED FOR PAIN 05/30 completed Not Available Not Available Not Available hydrocortis one 2.5 % topical ointment 12/07 completed Not Available Not Available Not Available ketoconazol e 2 % topical cream APPLY TWICE DAILY TO THE RED FLAKY FACE RASH 11/20 completed Not Available Not Available Not Available dicyclomine 10 mg capsule 12/03 completed Not Available Not Available Not Available naproxen 500 mg tablet TK 1 T PO BID 12/08 completed Not Available Not Available Not Available Vitamin D3 25 mcg (1,000 unit) capsule Take 1 capsule every day by oral route. 11/20 completed Not Available Not Available Not Available nitrofurant oin monohydrate /macrocryst als 100 mg capsule TAKE 1 CAPSULE BY MOUTH TWICE A DAY 05/29 completed Not Available Not Available Not Available Vytorin 10 mg-10 mg tablet TK T PO QD 08/11 completed Not Available Not Available Not Available Calcium 600 ONE TAB DAILY 11/20 completed Not Available Not Available Not Available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
--- OUTSIDE RECORDS SUMMARY | 2024-07-13 07:32 | XMS_ITS | Data Portability ---
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 june 13 gyne appt. Not available 05/22/2023 17:18:27 11/27/2023 11/27/2023 mammogram pt elects to get it every other year. next year due again. and dexa UTD. May appt with gyne completed. Not available 11/27/2023 17:17:37 06/08/2024 06/08/2024 mammogram pt elects to get it every other year. next year due again. and dexa UTD. May appt with gyne completed, oscar mcdonald, will get mammogram. . July 13 colonoscopy scheduled. Not available 06/21/2024 22:02:36 Plan of Treatment Reminders Order Date Submit Date Provider Last Modified By Organization Details Last Modified Time Details Appointments ANY 15 2024 03:30P M AMADA Torres Not available Not available Not available Lab CBC w/ auto diff 2024 025 [facility], [address], [address] [address], [place], [address], 06/08/2024 15:26:11 hepatic function panel, serum 2024 025 [facility], [address], [address], [place], [address], 06/08/2024 15:26:11 BMP, serum or plasma 2024 [facility], [address], [address], [place], [address], 06/08/2024 15:26:11 lipid panel, serum 2024 [facility], [address], [address], [place], [address], 06/08/2024 15:26:11 vitamin D, 25-hydrox y, total, serum 2024 [facility], [address], [address], [place], [address], 06/08/2024 15:26:11 TSH + free T4, serum 2024 [facility], [address], [address], [place], [address], 06/08/2024 15:26:11 T3, free, serum or plasma 2024 025 [email or web address], [address], [address], [place], [address], 06/08/2024 15:26:11 CBC w/ auto diff 2023 024 [facility], [address], [address], [place], [address], 05/20/2024 09:28:59 hepatic function panel, serum 2023 024 [facility], [address], [address], [place], [address], 05/20/2024 09:28:57 BMP, serum or plasma 2023 024 [facility], [address], [address], [place], [address], 05/20/2024 09:28:58 lipid panel, serum 2023 024 [facility], [address], [address], [place], [address], 05/20/2024 09:28:56 vitamin D, 25-hydrox y, total, serum 2023 024 [facility], [address], [address], [place], [address], 05/20/2024 09:29:01 TSH + free T4, serum 2023 024 [facility], [address], [address], [place], [address], 05/20/2024 09:28:55 T3, free, serum or plasma 2023 024 [facility], [address], [address], [place], [address], 05/20/2024 09:29:00 CBC w/ auto diff 2023 024 [facility]ak[facility], [address], [address], [place], [address], 11/20/2023 07:38:05 hepatic function panel, serum 2023 024 [facility]ak[facility], [address], [address], [place], [address], 11/20/2023 07:38:04 BMP, serum or plasma 2023 024 [facility]ak[facility], [address], [address], [place], [address], 11/20/2023 07:38:04 vitamin D, 25-hydrox y, total, serum 2023 024 [facility], [address], [address], [place], [address], 11/20/2023 07:38:07 lipid panel, serum 2023 024 [facility], [address], [address], [place], [address], 11/20/2023 07:38:03 TSH + free T4, serum 2023 024 [facility], [address], [address], [place], [address], 11/20/2023 07:38:02 T3, free, serum or plasma 2023 [facility], [address], [address], [place], [address], 11/20/2023 07:38:06 Referral None recorded. Procedures colonosco py screening (PROC) 2023 024 [facility], [address], [address], [place], [address], 04/28/2024 13:22:46 Surgeries None recorded. Imaging None recorded. Medication Orders triamcino lone acetonide 0.025 % topical cream 2024 025 [id number], [address] [place], [address], 06/08/2024 14:57:34 triamcino lone acetonide 0.025 % topical ointment 2024 025 [id number], [address] [place], [address], 06/08/2024 14:57:35 alendrona te 70 mg tablet 2023 024 [email or web address], [facility], [place], [address], 06/08/2024 14:58:26 atorvasta tin 20 mg tablet 2023 [facility] [place], [address], 05/22/2023 17:18:17 Synthroid 88 mcg tablet 2023 [facility] [place], [address], 05/22/2023 17:18:18 Patient TargetsNo targets recorded. Patient Instructions Encounter Date Encounter Id Patient Instructions Last Modified By Organization Details Last Modified Time 06/08/2024 [id number] A healthy lifestyle: care instructions Not available 06/21/2024 22:03:34 Reason for Referral None Reported. Results Created Date Observation Date Name Description Value Unit Range Abnormal Flag Note LastModifiedBy Organization Detail LastModifiedTime 05/16/1905/17/2023 TSH+F REE T4 TSH 0.383 uIU/m L 0.450- 4.500 below low normal Not Available [facility] ([facility]) [address] [place], [address], 05/17/2023 12:37:23 05/16/19 24 05/17/2023 TSH+F REE T4 T4,free(dire ct) 1.83 NG/dL 0.82-1 .77 above high normal Not Available [facility] ([facility]) [address] [place], [address], 05/17/2023 12:37:23 05/16/19 24 05/17/2023 LIPID PANEL cholesterol, total 191 mg/dL 100-19 9 Not Available [facility] ([facility]) [address] [place], [address], 05/17/2023 12:37:24 05/16/19 24 05/17/2023 LIPID PANEL triglyceride s 78 mg/dL 0-149 Not Available [facility] ([facility]) [address] [place], [address], 05/17/2023 12:37:24 05/16/19 24 05/17/2023 LIPID PANEL HDL cholesterol 86 mg/dL >39 Not Available [facility]) [address] [place], [address], 05/17/2023 12:37:24 05/16/19 24 05/17/2023 LIPID PANEL VLDL cholesterol rosi 14 mg/dL 5-40 Not Available [facility] ([facility]) [address] [place], [address], 05/17/2023 12:37:24 05/16/19 24 05/17/2023 LIPID PANEL LDL chol calc ([facility]) 91 mg/dL 0-99 Not Available [facility]) [address] [place], [address], 05/17/2023 12:37:24 05/16/19 24 05/17/2023 HEPAT IC FUNCT ION PANEL (7) protein, total 6.6 g/dL 6.0-8. 5 Not Available [facility] ([facility]) [address] [place], [address], 05/17/2023 12:37:24 05/16/19 24 05/17/2023 HEPAT IC FUNCT ION PANEL (7) albumin 4.4 g/dL 3.9-4. 9 Not Available [facility] ([facility]) [address] [place], [address], 05/17/2023 12:37:24 05/16/19 24 05/17/2023 HEPAT IC FUNCT ION PANEL (7) bilirubin, total 0.6 mg/dL 0.0-1. 2 Not Available [facility] ([facility]) [address] [facility] [place], [address], 05/17/2023 12:37:24 05/16/19 24 05/17/2023 HEPAT IC FUNCT ION PANEL (7) bilirubin, direct 0.15 mg/dL 0.00-0 .40 Not Available [facility] ([facility]) [address] [facility] [place], [address], 05/17/2023 12:37:24 05/16/19 24 05/17/2023 HEPAT IC FUNCT ION PANEL (7) alkaline phosphatase 55 IU/L 44-121 Not Available [facility]) [address] [facility] [place], [address], 05/17/2023 12:37:24 05/16/19 24 05/17/2023 HEPAT IC FUNCT ION PANEL (7) AST (SGOT) 18 IU/L 0-40 Not Available [facility] ([facility]) [address] [place], [address], 05/17/2023 12:37:24 05/16/19 24 05/17/2023 HEPAT IC FUNCT ION PANEL (7) ALT (SGPT) 12 IU/L 0-32 Not Available [facility] ([facility]) [address] [place], [address], 05/17/2023 12:37:24 05/16/19 24 05/17/2023 BMP7+ EGFR glucose 95 mg/dL 70-99 Not Available [facility] ([facility]) [address] [place], [address], 05/17/2023 12:37:25 05/16/19 24 05/17/2023 BMP7+ EGFR BUN 18 mg/dL 8-27 Not Available [facility] ([facility]) [address] [place], [address], 05/17/2023 12:37:25 05/16/19 24 05/17/2023 BMP7+ EGFR creatinine 0.80 mg/dL 0.57-1 .00 Not Available [facility] ([facility]) [address] [facility], [place], [address], 05/17/2023 12:37:25 05/16/19 24 05/17/2023 BMP7+ EGFR eGFR 81 mL/mi n/1.7 3 >59 Not Available [facility] ([facility]) [address] [facility], [place], [address], 05/17/2023 12:37:25 05/16/19 24 05/17/2023 BMP7+ EGFR sodium 141 mmol/ L 134-14 4 Not Available [facility] ([facility]) [address] [facility], [place], [address], 05/17/2023 12:37:25 05/16/19 24 05/17/2023 BMP7+ EGFR potassium 4.6 mmol/ L 3.5-5. 2 Not Available [facility] ([facility]) [address] [facility], [place], [address], 05/17/2023 12:37:25 05/16/19 24 05/17/2023 BMP7+ EGFR chloride 103 mmol/ L 96-106 Not Available [facility] ([facility]) [address] [facility], [place], [address], 05/17/2023 12:37:25 05/16/19 24 05/17/2023 BMP7+ EGFR carbon dioxide, total 24 mmol/ L 20-29 Not Available [facility] ([facility]) [address] [place], [address], 05/17/2023 12:37:25 05/16/19 24 05/17/2023 CBC WITH DIFFE RENTI AL/PL ATELE T WBC 4.1 x10e3 /uL 3.4-10 .8 Not Available [facility] ([facility]) [address] [place], [address], 05/17/2023 12:37:25 05/16/19 24 05/17/2023 CBC WITH DIFFE RENTI AL/PL ATELE T RBC 4.64 x10e6 /uL 3.77-5 .28 Not Available [facility] ([facility]) [address] [place], [address], 05/17/2023 12:37:25 05/16/19 24 05/17/2023 CBC WITH DIFFE RENTI AL/PL ATELE T hemoglobin 14.3 g/dL 11.1-1 5.9 Not Available [facility] ([facility]) [address] [place], [address], 05/17/2023 12:37:25 05/16/19 24 05/17/2023 CBC WITH DIFFE RENTI AL/PL ATELE T hematocrit 43.1 % 34.0-4 6.6 Not Available [facility] ([facility]) [address] [place], [address], 05/17/2023 12:37:25 05/16/19 24 05/17/2023 CBC WITH DIFFE RENTI AL/PL ATELE T MCV 93 fL 79-97 Not Available [facility] ([facility]) [address] [place], [address], 05/17/2023 12:37:25 05/16/19 24 05/17/2023 CBC WITH DIFFE RENTI AL/PL ATELE T MCH 30.8 pg 26.6-3 3.0 Not Available [facility] ([facility]) [address] [place], [address], 05/17/2023 12:37:25 05/16/19 24 05/17/2023 CBC WITH DIFFE RENTI AL/PL ATELE T MCHC 33.2 g/dL 31.5-3 5.7 Not Available [facility] ([facility]) [address] [place], [address], 05/17/2023 12:37:25 05/16/19 24 05/17/2023 CBC WITH DIFFE RENTI AL/PL ATELE T RDW 12.7 % 11.7-1 5.4 Not Available [facility] ([facility]) [address] [facility], [place], [address], 05/17/2023 12:37:25 05/16/19 24 05/17/2023 CBC WITH DIFFE RENTI AL/PL ATELE T platelets 175 x10e3 /uL 150-45 0 Not Available [facility] ([facility]) [address] [facility], [place], [address], 05/17/2023 12:37:25 05/16/19 24 05/17/2023 CBC WITH DIFFE RENTI AL/PL ATELE T neutrophils 55 % notest ab. Not Available [facility] ([facility]) [address] [facility], [place], [address], 05/17/2023 12:37:25 05/16/19 24 05/17/2023 CBC WITH DIFFE RENTI AL/PL ATELE T lymphs 33 % notest ab. Not Available [facility] ([facility]) [address] [facility], [place], [address], 05/17/2023 12:37:25 05/16/19 24 05/17/2023 CBC WITH DIFFE RENTI AL/PL ATELE T monocytes 8 % notest ab. Not Available [facility] ([facility]) [address] [facility], [place], [address], 05/17/2023 12:37:25 05/16/19 24 05/17/2023 CBC WITH DIFFE RENTI AL/PL ATELE T eos 3 % notest ab. Not Available [facility] ([facility]) [address] [facility], [place], [address], 05/17/2023 12:37:25 05/16/19 24 05/17/2023 CBC WITH DIFFE RENTI AL/PL ATELE T basos 1 % notest ab. Not Available [facility] ([facility]) [address] [facility], [place], [address], 05/17/2023 12:37:25 05/16/19 24 05/17/2023 CBC WITH DIFFE RENTI AL/PL ATELE T neutrophils (absolute) 2.3 x10e3 /uL 1.4-7. 0 Not Available [facility] ([facility]) [address] [facility], [place], [address], 05/17/2023 12:37:25 05/16/19 24 05/17/2023 CBC WITH DIFFE RENTI AL/PL ATELE T lymphs (absolute) 1.4 x10e3 /uL 0.7-3. 1 Not Available [facility] ([facility]) [address] [facility], [place], [address], 05/17/2023 12:37:25 05/16/19 24 05/17/2023 CBC WITH DIFFE RENTI AL/PL ATELE T monocytes(ab solute) 0.3 x10e3 /uL 0.1-0. 9 Not Available [facility] ([facility]) [address] [place], [address], 05/17/2023 12:37:25 05/16/19 24 05/17/2023 CBC WITH DIFFE RENTI AL/PL ATELE T eos (absolute) 0.1 x10e3 /uL 0.0-0. 4 Not Available [facility] ([facility]) [address] [place], [address], 05/17/2023 12:37:25 05/16/19 24 05/17/2023 CBC WITH DIFFE RENTI AL/PL ATELE T baso (absolute) 0.0 x10e3 /uL 0.0-0. 2 Not Available [facility] ([facility]) [address] [place], [address], 05/17/2023 12:37:25 05/16/19 24 05/17/2023 CBC WITH DIFFE RENTI AL/PL ATELE T immature granulocytes 0 % notest ab. Not Available [facility] ([facility]) [address] [facility], [place], [address], 05/17/2023 12:37:25 05/16/19 24 05/17/2023 CBC WITH DIFFE RENTI AL/PL ATELE T immature grans (abs) 0.0 x10e3 /uL 0.0-0. 1 Not Available [facility] ([facility]) [address] [facility], [place], [address], 05/17/2023 12:37:25 05/16/19 24 05/17/2023 VITAM IN D, 25-HY DROXY vitamin D, 25-hydroxy 44.5 NG/mL 30.0-1 00.0 Vitam in D defic iency has been defin ed by the Insti tute of Medic ine and an Endoc rine Socie ty pract ice guide line as a level of serum 25-OH vitam in D less than 20 ng/mL (1,2) . The Endoc rine Socie ty went on to furth er defin e vitam in D insuf ficie ncy as a level betwe en 21 and 29 ng/mL (2). 1. IOM (Inst itute of Medic ine). 2009. Dieta ry refer ence loren es for calci um and D. Oswald long [place]: The [facility] Press . 2. Quique noel MF, Juwan ey [place], Martha off-F errar i ARDON, et al. Evalu ation , treat ment, and preve ntion of vitam in D defic iency : an Endoc rine Socie ty clini rosi pract ice guide line. JCEM. 2010; 96(7) :1911 -30. Not Available [facility] ([facility]) [address] [facility], [place], [address], 05/17/2023 12:37:26 11/19/1911/20/2023 TSH+F REE T4 TSH 3.530 uIU/m L 0.450- 4.500 Not Available [facility] ([facility]) [address] [place], [address], 11/20/2023 07:38:02 11/19/1911/20/2023 TSH+F REE T4 T4,free(dire ct) 1.61 NG/dL 0.82-1 .77 Not Available [facility] ([facility]) [address] [place], [address], 11/20/2023 07:38:02 11/19/1911/20/2023 LIPID PANEL cholesterol, total 209 mg/dL 100-19 9 above high normal Not Available [facility] ([facility]) [address] [place], [address], 11/20/2023 07:38:03 11/19/1911/20/2023 LIPID PANEL triglyceride s 72 mg/dL 0-149 Not Available [facility] ([facility]) [address] [place], [address], 11/20/2023 07:38:03 11/19/1911/20/2023 LIPID PANEL HDL cholesterol 103 mg/dL >39 Not Available [facility] ([facility]) [address] [place], [address], 11/20/2023 07:38:03 11/19/1911/20/2023 LIPID PANEL VLDL cholesterol rosi 13 mg/dL 5-40 Not Available [facility] ([facility]) [address] [place], [address], 11/20/2023 07:38:03 11/19/1911/20/2023 LIPID PANEL LDL chol calc ([facility]) 93 mg/dL 0-99 Not Available [facility] ([facility]) [address] [place], [address], 11/20/2023 07:38:03 11/19/1911/20/2023 HEPAT IC FUNCT ION PANEL (7) protein, total 6.6 g/dL 6.0-8. 5 Not Available [facility] ([facility]) [address] [place], [address], 11/20/2023 07:38:04 11/19/1911/20/2023 HEPAT IC FUNCT ION PANEL (7) albumin 4.7 g/dL 3.9-4. 9 Not Available [facility] ([facility]) [address] [facility] [place], [address], 11/20/2023 07:38:04 11/19/1911/20/2023 HEPAT IC FUNCT ION PANEL (7) bilirubin, total 0.5 mg/dL 0.0-1. 2 Not Available [facility] ([facility]) [address] [facility], [place], [address], 11/20/2023 07:38:04 11/19/1911/20/2023 HEPAT IC FUNCT ION PANEL (7) bilirubin, direct 0.17 mg/dL 0.00-0 .40 Not Available [facility] ([facility]) [address] [facility] [place], [address], 11/20/2023 07:38:04 11/19/1911/20/2023 HEPAT IC FUNCT ION PANEL (7) alkaline phosphatase 54 IU/L 44-121 Not Available [facility] ([facility]) [address] [facility] [place], [address], 11/20/2023 07:38:04 11/19/1911/20/2023 HEPAT IC FUNCT ION PANEL (7) AST (SGOT) 25 IU/L 0-40 Not Available [facility] ([facility]) [address] [facility] [place], [address], 11/20/2023 07:38:04 11/19/1911/20/2023 HEPAT IC FUNCT ION PANEL (7) ALT (SGPT) 16 IU/L 0-32 Not Available [facility] ([facility]) [address] [facility] [place], [address], 11/20/2023 07:38:04 11/19/1911/20/2023 BMP7+ EGFR glucose 84 mg/dL 70-99 Not Available [facility] ([facility]) [address] [facility] [place], [address], 11/20/2023 07:38:04 11/19/1911/20/2023 BMP7+ EGFR BUN 18 mg/dL 8-27 Not Available [facility] ([facility]) [address] [place], [address], 11/20/2023 07:38:04 11/19/1911/20/2023 BMP7+ EGFR creatinine 0.87 mg/dL 0.57-1 .00 Not Available [facility] ([facility]) [address] [facility] [place], [address], 11/20/2023 07:38:04 11/19/1911/20/2023 BMP7+ EGFR eGFR 73 mL/mi n/1.7 3 >59 Not Available [facility] ([facility]) [address] [place], [address], 11/20/2023 07:38:04 11/19/1911/20/2023 BMP7+ EGFR sodium 141 mmol/ L 134-14 4 Not Available [facility] ([facility]) [address] [place], [address], 11/20/2023 07:38:04 11/19/1911/20/2023 BMP7+ EGFR potassium 4.4 mmol/ L 3.5-5. 2 Not Available [facility] ([facility]) [address] [place], [address], 11/20/2023 07:38:04 11/19/19 24 11/20/2023 BMP7+ EGFR chloride 102 mmol/ L 96-106 Not Available [facility] ([facility]) [address] [facility], [place], [address], 11/20/2023 07:38:04 11/19/19 24 11/20/2023 BMP7+ EGFR carbon dioxide, total 24 mmol/ L 20-29 Not Available [facility] ([facility]) [address] [facility], [place], [address], 11/20/2023 07:38:04 11/19/19 24 11/19/2023 CBC WITH DIFFE RENTI AL/PL ATELE T WBC 4.0 x10e3 /uL 3.4-10 .8 Not Available [facility] ([facility]) [address] [facility], [place], [address], 11/20/2023 07:38:05 11/19/19 24 11/19/2023 CBC WITH DIFFE RENTI AL/PL ATELE T RBC 4.61 x10e6 /uL 3.77-5 .28 Not Available [facility] ([facility]) [address] [facility], [place], [address], 11/20/2023 07:38:05 11/19/19 24 11/19/2023 CBC WITH DIFFE RENTI AL/PL ATELE T hemoglobin 14.3 g/dL 11.1-1 5.9 Not Available [facility] ([facility]) [address] [facility], [place], [address], 11/20/2023 07:38:05 11/19/19 24 11/19/2023 CBC WITH DIFFE RENTI AL/PL ATELE T hematocrit 44.2 % 34.0-4 6.6 Not Available [facility] ([facility]) [address] [facility], [place], [address], 11/20/2023 07:38:05 11/19/19 24 11/19/2023 CBC WITH DIFFE RENTI AL/PL ATELE T MCV 96 fL 79-97 Not Available [facility] ([facility]) [address] [facility], [place], [address], 11/20/2023 07:38:05 11/19/19 24 11/19/2023 CBC WITH DIFFE RENTI AL/PL ATELE T MCH 31.0 pg 26.6-3 3.0 Not Available [facility] ([facility]) [address] [facility], [place], [address], 11/20/2023 07:38:05 11/19/19 24 11/19/2023 CBC WITH DIFFE RENTI AL/PL ATELE T MCHC 32.4 g/dL 31.5-3 5.7 Not Available [facility] ([facility]) [address] [facility], [place], [address], 11/20/2023 07:38:05 11/19/19 24 11/19/2023 CBC WITH DIFFE RENTI AL/PL ATELE T RDW 12.2 % 11.7-1 5.4 Not Available [facility] ([facility]) [address] [facility], [place], [address], 11/20/2023 07:38:05 11/19/19 24 11/19/2023 CBC WITH DIFFE RENTI AL/PL ATELE T platelets 166 x10e3 /uL 150-45 0 Not Available [facility] ([facility]) [address] [facility], [place], [address], 11/20/2023 07:38:05 11/19/19 24 11/19/2023 CBC WITH DIFFE RENTI AL/PL ATELE T neutrophils 53 % notest ab. Not Available [facility] ([facility]) [address] [facility], [place], [address], 11/20/2023 07:38:05 11/19/19 11/19/2023 CBC WITH DIFFE RENTI AL/PL ATELE T lymphs 34 % notest ab. Not Available [facility] ([facility]) [address] [facility], [place], [address], 11/20/2023 07:38:05 11/19/19 24 11/19/2023 CBC WITH DIFFE RENTI AL/PL ATELE T monocytes 9 % notest ab. Not Available [facility] ([facility]) [address] [facility], [place], [address], 11/20/2023 07:38:05 11/19/1911/19/2023 CBC WITH DIFFE RENTI AL/PL ATELE T eos 3 % notest ab. Not Available [facility] ([facility]) [address] [facility], [place], [address], 11/20/2023 07:38:05 11/19/1911/19/2023 CBC WITH DIFFE RENTI AL/PL ATELE T basos 1 % notest ab. Not Available [facility] ([facility]) [address] [facility], [place], [address], 11/20/2023 07:38:05 11/19/1911/19/2023 CBC WITH DIFFE RENTI AL/PL ATELE T neutrophils (absolute) 2.2 x10e3 /uL 1.4-7. 0 Not Available [facility] ([facility]) [address] [facility], [place], [address], 11/20/2023 07:38:05 11/19/1911/19/2023 CBC WITH DIFFE RENTI AL/PL ATELE T lymphs (absolute) 1.3 x10e3 /uL 0.7-3. 1 Not Available [facility] ([facility]) [address] [facility], [place], [address], 11/20/2023 07:38:05 11/19/19 24 11/19/2023 CBC WITH DIFFE RENTI AL/PL ATELE T monocytes(ab solute) 0.3 x10e3 /uL 0.1-0. 9 Not Available [facility] ([facility]) [address] [place], [address], 11/20/2023 07:38:05 11/19/19 24 11/19/2023 CBC WITH DIFFE RENTI AL/PL ATELE T eos (absolute) 0.1 x10e3 /uL 0.0-0. 4 Not Available [facility] ([facility]) [address] [facility], [place], [address], 11/20/2023 07:38:05 11/19/19 24 11/19/2023 CBC WITH DIFFE RENTI AL/PL ATELE T baso (absolute) 0.0 x10e3 /uL 0.0-0. 2 Not Available [facility] ([facility]) [address] [place], [address], 11/20/2023 07:38:05 11/19/19 24 11/19/2023 CBC WITH DIFFE RENTI AL/PL ATELE T immature granulocytes 0 % notest ab. Not Available [facility] ([facility]) [address] [place], [address], 11/20/2023 07:38:05 11/19/19 24 11/19/2023 CBC WITH DIFFE RENTI AL/PL ATELE T immature grans (abs) 0.0 x10e3 /uL 0.0-0. 1 Not Available [facility] ([facility]) [address] [place], [address], 11/20/2023 07:38:05 11/19/19 24 11/20/2023 TRIIO DOTHY [place] E (T3), FREE triiodothyro nine (T3), free 2.4 pg/mL 2.0-4. 4 Not Available [facility] ([facility]) [address] [place], [address], 11/20/2023 07:38:06 11/19/19 24 11/20/2023 VITAM IN D, 25-HY DROXY vitamin D, 25-hydroxy 49.3 NG/mL 30.0-1 00.0 Vitam in D defic iency has been defin ed by the Insti tute of Medic ine and an Endoc rine Socie ty pract ice guide line as a level of serum 25-OH vitam in D less than 20 ng/mL (1,2) . The Endoc rine Socie ty went on to furth er defin e vitam in D insuf ficie ncy as a level betwe en 21 and 29 ng/mL (2). 1. IOM (Inst itute of Medic ine). 2009. Dalilaa ry refer ence intak es for calci um and D. Oswald long [place]: [facility] . 2. Quique noel MF, Juwan gayle [place], Martha off-F mady i ARDON, et al. Evalu ation , treat ment, and preve ntion of vitam in D defic iency : an Endoc rine Socie ty clini rosi pract ice guide line. JCEM. 2010; 96(7) :1911 -30. Not Available [facility] ([facility]) [address] [place], [address], 11/20/2023 07:38:07 05/20/19 25 05/20/2024 TSH+F REE T4 TSH 3.500 uIU/m L 0.450- 4.500 Not Available [facility] ([facility]) [address] [place], [address], 05/20/2024 09:28:55 05/20/1905/20/2024 TSH+F REE T4 T4,free(dire ct) 1.49 NG/dL 0.82-1 .77 Not Available [facility] ([facility]) [address] [place], [address], 05/20/2024 09:28:55 05/20/19 25 05/20/2024 LIPID PANEL WITH LDL/H DL RATIO cholesterol, total 209 mg/dL 100-19 9 above high normal Not Available [facility] ([facility]) [address] [place], [address], 05/20/2024 09:28:56 05/20/19 25 05/20/2024 LIPID PANEL WITH LDL/H DL RATIO triglyceride s 91 mg/dL 0-149 Not Available [facility] ([facility]) [address] [place], [address], 05/20/2024 09:28:56 05/20/19 25 05/20/2024 LIPID PANEL WITH LDL/H DL RATIO HDL cholesterol 90 mg/dL >39 Not Available [facility] ([facility]) [address] [place], [address], 05/20/2024 09:28:56 05/20/19 25 05/20/2024 LIPID PANEL WITH LDL/H DL RATIO VLDL cholesterol rosi 16 mg/dL 5-40 Not Available [facility] ([facility]) [address] [place], [address], 05/20/2024 09:28:56 05/20/19 25 05/20/2024 LIPID PANEL WITH LDL/H DL RATIO LDL chol calc ([facility]) 103 mg/dL 0-99 above high normal Not Available [facility] ([facility]) [address] [place], [address], 05/20/2024 09:28:56 05/20/19 25 05/20/2024 LIPID PANEL WITH LDL/H DL RATIO LDL/HDL ratio 1.1 ratio 0.0-3. 2 LDL/H DL Ratio Men Women 1/2 Avg.R isk 1.0 1.5 Avg.R isk 3.6 3.2 2X Avg.R isk 6.2 5.0 3X Avg.R isk 8.0 6.1 Not Available [facility] ([facility]) [address] [place], [address], 05/20/2024 09:28:56 05/20/19 25 05/20/2024 HEPAT IC FUNCT ION PANEL (7) protein, total 6.4 g/dL 6.0-8. 5 Not Available [facility] ([facility]) [address] [place], [address], 05/20/2024 09:28:57 05/20/19 25 05/20/2024 HEPAT IC FUNCT ION PANEL (7) albumin 4.4 g/dL 3.9-4. 9 Not Available [facility] ([facility]) [address] [facility] [place], [address], 05/20/2024 09:28:57 05/20/19 25 05/20/2024 HEPAT IC FUNCT ION PANEL (7) bilirubin, total 0.7 mg/dL 0.0-1. 2 Not Available [facility] ([facility]) [address] [facility] [place], [address], 05/20/2024 09:28:57 05/20/1905/20/2024 HEPAT IC FUNCT ION PANEL (7) bilirubin, direct 0.20 mg/dL 0.00-0 .40 Not Available [facility] ([facility]) [address] [facility] [place], [address], 05/20/2024 09:28:57 05/20/1905/20/2024 HEPAT IC FUNCT ION PANEL (7) alkaline phosphatase 53 IU/L 44-121 Not Available [facility] ([facility]) [address] [facility] [place], [address], 05/20/2024 09:28:57 05/20/19 25 05/20/2024 HEPAT IC FUNCT ION PANEL (7) AST (SGOT) 23 IU/L 0-40 Not Available [facility] ([facility]) [address] [facility] [place], [address], 05/20/2024 09:28:57 05/20/19 25 05/20/2024 HEPAT IC FUNCT ION PANEL (7) ALT (SGPT) 13 IU/L 0-32 Not Available [facility] ([facility]) [address] [place], [address], 05/20/2024 09:28:57 05/20/19 25 05/20/2024 BMP7+ EGFR glucose 88 mg/dL 70-99 Not Available [facility] ([facility]) [address] [place], [address], 05/20/2024 09:28:58 05/20/1905/20/2024 BMP7+ EGFR BUN 16 mg/dL 8-27 Not Available [facility] ([facility]) [address] [place], [address], 05/20/2024 09:28:58 05/20/1905/20/2024 BMP7+ EGFR creatinine 0.86 mg/dL 0.57-1 .00 Not Available [facility] ([facility]) [address] [place], [address], 05/20/2024 09:28:58 05/20/1905/20/2024 BMP7+ EGFR eGFR 74 mL/mi n/1.7 3 >59 Not Available [facility] ([facility]) [address] [place], [address], 05/20/2024 09:28:58 05/20/1905/20/2024 BMP7+ EGFR sodium 141 mmol/ L 134-14 4 Not Available [facility] ([facility]) [address] [place], [address], 05/20/2024 09:28:58 05/20/19 25 05/20/2024 BMP7+ EGFR potassium 5.0 mmol/ L 3.5-5. 2 Not Available [facility] ([facility]) [address] [place], [address], 05/20/2024 09:28:58 05/20/19 25 05/20/2024 BMP7+ EGFR chloride 102 mmol/ L 96-106 Not Available [facility] ([facility]) [address] [facility], [place], [address], 05/20/2024 09:28:58 05/20/19 25 05/20/2024 BMP7+ EGFR carbon dioxide, total 25 mmol/ L 20-29 Not Available [facility] ([facility]) [address] [facility], [place], [address], 05/20/2024 09:28:58 05/20/19 25 05/19/2024 CBC WITH DIFFE RENTI AL/PL ATELE T WBC 3.9 x10e3 /uL 3.4-10 .8 Not Available [facility] ([facility]) [address] [facility], [place], [address], 05/20/2024 09:28:59 05/20/19 25 05/19/2024 CBC WITH DIFFE RENTI AL/PL ATELE T RBC 4.51 x10e6 /uL 3.77-5 .28 Not Available [facility] ([facility]) [address] [facility], [place], [address], 05/20/2024 09:28:59 05/20/1905/19/2024 CBC WITH DIFFE RENTI AL/PL ATELE T hemoglobin 14.1 g/dL 11.1-1 5.9 Not Available [facility] ([facility]) [address] [place], [address], 05/20/2024 09:28:59 05/20/19 25 05/19/2024 CBC WITH DIFFE RENTI AL/PL ATELE T hematocrit 43.8 % 34.0-4 6.6 Not Available [facility] ([facility]) [address] [place], [address], 05/20/2024 09:28:59 05/20/19 25 05/19/2024 CBC WITH DIFFE RENTI AL/PL ATELE T MCV 97 fL 79-97 Not Available [facility] ([facility]) [address] [facility], [place], [address], 05/20/2024 09:28:59 05/20/19 25 05/19/2024 CBC WITH DIFFE RENTI AL/PL ATELE T MCH 31.3 pg 26.6-3 3.0 Not Available [facility] ([facility]) [address] [facility], [place], [address], 05/20/2024 09:28:59 05/20/19 25 05/19/2024 CBC WITH DIFFE RENTI AL/PL ATELE T MCHC 32.2 g/dL 31.5-3 5.7 Not Available [facility] ([facility]) [address] [facility], [place], [address], 05/20/2024 09:28:59 05/20/19 25 05/19/2024 CBC WITH DIFFE RENTI AL/PL ATELE T RDW 12.3 % 11.7-1 5.4 Not Available [facility] ([facility]) [address] [facility], [place], [address], 05/20/2024 09:28:59 05/20/19 25 05/19/2024 CBC WITH DIFFE RENTI AL/PL ATELE T platelets 176 x10e3 /uL 150-45 0 Not Available [facility] ([facility]) [address] [place], [address], 05/20/2024 09:28:59 05/20/19 25 05/19/2024 CBC WITH DIFFE RENTI AL/PL ATELE T neutrophils 50 % notest ab. Not Available [facility] ([facility]) [address] [place], [address], 05/20/2024 09:28:59 05/20/19 25 05/19/2024 CBC WITH DIFFE RENTI AL/PL ATELE T lymphs 36 % notest ab. Not Available [facility] ([facility]) [address] [facility], [place], [address], 05/20/2024 09:28:59 05/20/19 25 05/19/2024 CBC WITH DIFFE RENTI AL/PL ATELE T monocytes 9 % notest ab. Not Available [facility] ([facility]) [address] [facility], [place], [address], 05/20/2024 09:28:59 05/20/19 25 05/19/2024 CBC WITH DIFFE RENTI AL/PL ATELE T eos 4 % notest ab. Not Available [facility] ([facility]) [address] [facility], [place], [address], 05/20/2024 09:28:59 05/20/19 25 05/19/2024 CBC WITH DIFFE RENTI AL/PL ATELE T basos 1 % notest ab. Not Available [facility] ([facility]) [address] [facility], [place], [address], 05/20/2024 09:28:59 05/20/19 25 05/19/2024 CBC WITH DIFFE RENTI AL/PL ATELE T neutrophils (absolute) 2.0 x10e3 /uL 1.4-7. 0 Not Available [facility] ([facility]) [address] [facility], [place], [address], 05/20/2024 09:28:59 05/20/19 25 05/19/2024 CBC WITH DIFFE RENTI AL/PL ATELE T lymphs (absolute) 1.4 x10e3 /uL 0.7-3. 1 Not Available [facility] ([facility]) [address] [facility], [place], [address], 05/20/2024 09:28:59 05/20/19 25 05/19/2024 CBC WITH DIFFE RENTI AL/PL ATELE T monocytes(ab solute) 0.4 x10e3 /uL 0.1-0. 9 Not Available [facility] ([facility]) [address] [place], [address], 05/20/2024 09:28:59 05/20/19 25 05/19/2024 CBC WITH DIFFE RENTI AL/PL ATELE T eos (absolute) 0.2 x10e3 /uL 0.0-0. 4 Not Available [facility] ([facility]) [address] [place], [address], 05/20/2024 09:28:59 05/20/19 25 05/19/2024 CBC WITH DIFFE RENTI AL/PL ATELE T baso (absolute) 0.0 x10e3 /uL 0.0-0. 2 Not Available [facility] ([facility]) [address] [place], [address], 05/20/2024 09:28:59 05/20/19 25 05/19/2024 CBC WITH DIFFE RENTI AL/PL ATELE T immature granulocytes 0 % notest ab. Not Available [facility] ([facility]) [address] [place], [address], 05/20/2024 09:28:59 05/20/19 25 05/19/2024 CBC WITH DIFFE RENTI AL/PL ATELE T immature grans (abs) 0.0 x10e3 /uL 0.0-0. 1 Not Available [facility] ([facility]) [address] [place], [address], 05/20/2024 09:28:59 05/20/19 25 05/20/2024 TRIIO DOTHY [place] E (T3), FREE triiodothyro nine (T3), free 2.6 pg/mL 2.0-4. 4 Not Available [facility] ([facility]) [address] [place], [address], 05/20/2024 09:29:00 05/20/19 25 05/20/2024 VITAM IN D, 25-HY DROXY vitamin D, 25-hydroxy 47.2 NG/mL 30.0-1 00.0 Vitam in D defic iency has been defin ed by the Insti tute of Medic ine and an Endoc rine Socie ty pract ice guide line as a level of serum 25-OH vitam in D less than 20 ng/mL (1,2) . The Endoc rine Socie ty went on to furth er defin e vitam in D insuf ficie ncy as a level betwe en 21 and 29 ng/mL (2). 1. IOM (Inst itute of Medic ine). 2010. Dalilaa ry refer ence intak es for calci um and D. Oswald long [place]: [facility] . 2. Quique noel MF, Juwan gayle [place], Martha off-F mady i ARDON, et al. Evalu ation , treat ment, and preve ntion of vitam in D defic iency : an Endoc rine Socie ty clini rosi pract ice guide line. JCEM. 2010; 96(7) :1911 -30. Not Available [facility] ([facility]) [address] [facility], [place], [address], 05/20/2024 09:29:01 Result Notes None recorded. Problems Name Problem SNOMED Code Status Onset Date Resolution Date Notes Provider Name and Address Organization Details Recorded Time Osteopenia 910798370 Active 2023 AMADA Torres Attn: Lang carcamo,[address], [place], [address], [facility] - [facility] 4 19:23:44 Hyperlipidemia 25509173 Active 2023 AMADA Torres Attn: Lang carcamo,[address], [place], [address], [place] - [facility] 4 19:23:45 Hypothyroidism 72575739 Active 2023 AMADA Torres Attn: Lang carcamo,[address], [place], [address], [place] - [facility] 4 19:23:46 Body mass index less than 20 891444228 Active 2024 Jenni escobar, [place] - [facility] 5 08:27:14 Perioral dermatitis with periocular dermatitis 752541062 Active 2024 AMADA Torres Attn: Lang carcamo,[address], [place], [address], [place] - [facility] 5 12:01:22 Long-term drug therapy Active 2024 AMADA Torres Attn: Lang carcamo,[address], [place], [address], [place] - [facility] 5 22:03:31 Problem Notes None recorded. Procedures Surgical History Date Name Laterality Status Provider Name and Address Organization Details Recorded Time Hernia Repair completed Lauro Mullins MA [place] - [facility] 05/22/2023 16:43:29 Imaging Results None recorded. Procedure Notes None recorded. Medical Equipment None Reported. Allergies No known drug allergies Medications Name Sig Start Date Stop Date Status Note LastModified by Organization Details LastModified Time atorvastati n 20 mg tablet Take 1 tablet every day by oral route. active Not Available Not Available No t Available ibuprofen 800 mg tablet TAKE 1 TABLET BY MOUTH EVERY 6 HOURS NEEDED FOR PAIN active Not Available Not Available No t Available ofloxacin 0.3 % eye drops 4 DRP INTO THE EAR(S) THREE TIMES A DAY FOR EXTERNAL OTITIS LEFT WITH EAR UP FOR 1 MINUTE AFTERWARD S 06/08 completed Not Available Not Available Not Available hydrocodone 5 mg-acetamin ophen 325 mg tablet TAKE 1-2 TABLETS BY MOUTH EVERY 6 HOURS NEEDED FOR PAIN 05/21 completed Not Available Not Available Not Available prednisone 20 mg tablet PLEASE SEE ATTACHED FOR DETAILED DIRECTION S 11/26 completed Not Available Not Available Not Available alendronate 70 mg tablet TAKE 1 TABLET WEEKLY 2024 active Not Available Not Available Not Avai lable Synthroid 100 mcg tablet 05/21 completed Not Available Not Available Not Available clobetasol 0.05 % topical cream 11/26 completed Not Available Not Available Not Available ciprofloxac in 500 mg tablet Take every 3 months by oral route for 90 days. 03/20 completed Not Available Not Available Not Available levothyroxi ne 88 mcg tablet Take 1 tablet every day by oral route for 90 days. active Not Available Not Available No t Available triamcinolo ne acetonide 0.025 % topical cream APPLY A THIN LAYER TO THE AFFECTED AREA(S) BY TOPICAL ROUTE IN THE MORNING 06/08 completed Not Available Not Available Not Available triamcinolo ne acetonide 0.025 % topical ointment APPLY A THIN LAYER TO THE AFFECTED AREA(S) BY TOPICAL ROUTE AT BEDTIME 06/08 completed Not Available Not Available Not Available hydrocortis one 2.5 % topical cream APPLY TWICE DAILY SPARINGLY TO RASH ON EYELIDS AND TO CREASES AROUND MOUTH AND LIPS NEEDED 11/26 completed Not Available Not Available Not Available ibuprofen 600 mg tablet TAKE 1 TABLET BY MOUTH EVERY 6 HOURS NEEDED FOR PAIN 11/26 completed Not Available Not Available Not Available ketoconazol e 2 % topical cream APPLY TWICE DAILY TO THE RED FLAKY FACE RASH 11/26 completed Not Available Not Available Not Available estradiol 10 mcg vaginal tablet Insert 2 tablets every week by vaginal route for 84 days. active Not Available Not Available No t Available clobetasol 0.025 % topical cream APPLY A THIN LAYER TO THE AFFECTED AREA(S) BY TOPICAL ROUTE 2 TIMES PER DAY ; RUB IN GENTLY AND COMPLETEL Y active Not Available Not Available No t Available Vitals Date Recorded Body height Body mass index (BMI) Body weight Heart rate Respiratory rate Oxygen saturation Oxygen saturation in Arterial blood by Pulse oximetry Provider Name and Address Organization Details Last Updated DateTime 5 162.56 cm 19.7 kg/m2 30212.4 g 84 /min 16 /min 98 % 98 % Jenni Chapa [facility] 5 08:33:18 Date Recorded Systolic blood pressure Diastolic blood pressure Provider Name and Address Organization Details Last Updated DateTime 05/22/2023 110 mm[Hg] 80 mm[Hg] AMADA Torres Attn: Accounting,[address] [place], [address], [facility] 05/22/2023 17:17:56 Date Recorded Body height Body mass index (BMI) Body weight Respiratory rate Oxygen saturation Oxygen saturation in Arterial blood by Pulse oximetry Heart rate Provider Name and Address Organization Details Last Updated DateTime 4 162.56 cm 19.6 kg/m2 29196.5 3 g 20 /min 99 % 99 % 77 /min Lauro Mullins MA [facility] 17:00:13 Date Recorded Systolic blood pressure Diastolic blood pressure Provider Name and Address Organization Details Last Updated DateTime 06/08/2024 104 mm[Hg] 70 mm[Hg] AMADA Torres Attn: Accounting,[address] [facility], [place], [address], [facility] 06/08/2024 15:25:37 Date Recorded Body height Body mass index (BMI) Body weight Respiratory rate Oxygen saturation Oxygen saturation in Arterial blood by Pulse oximetry Heart rate Systolic blood pressure Diastolic blood pressure Provider Name and Address Organization Details Last Updated DateTime 5 162.56 cm 19.6 kg/m2 25731.5 3 g 18 /min 97 % 97 % 80 /min 118 mm[Hg] 72 mm[Hg] Lauro Mullins MA [facility] 15:00:20 Date Recorded Body height Body mass index (BMI) Body weight Respiratory rate Oxygen saturation Oxygen saturation in Arterial blood by Pulse oximetry Heart rate Systolic blood pressure Diastolic blood pressure Provider Name and Address Organization Details Last Updated DateTime 4 162.56 cm 19.6 kg/m2 16971.5 3 g 20 /min 99 % 99 % 76 /min 118 mm[Hg] 82 mm[Hg] Lauro Mullins MA [facility] 16:36:58 Social History Question Answer Notes LastModified by Organizat ion Details LastModified Time Tobacco Smoking Status Former Smoker 30 years ago Lauro Mullins MA null, [facility] 05/22/2023 16:58:09 Are You Blind Or Do You Have Difficulty Seeing? No Glasses Information not available 05/22/2023 What Is Your Level Of Caffeine Consumption? Occasional Coffee A Day Information not available 05/22/2023 In The 14 Days Before Symptom Onset, Have You Had Close Contact With A Laboratory-confir med COVID-19 While That Case Was Ill? No Information not available 05/22/2023 In The 14 Days Before Symptom Onset, Have You Had Close Contact With A Person Who Is Under Investigation For COVID-19 While That Person Was Ill? No Information not available 05/22/2023 Have You Been To An Area Known To Be High Risk For COVID-19? No Information not available 05/22/2023 Are You Deaf Or Do You Have Serious Difficulty Hearing? No Information not available 05/22/2023 What Type Of Diet Are You Following? REGULAR Information not available 05/22/2023 Are There Any Guns Present In Your Home? No Information not available 05/22/2023 What Was The Date Of Your Most Recent Tobacco Screening? 06/08/2024 Information not available 06/08/2024 What Is Your Current Pack Years? 10-19packyear s Information not available 05/22/2023 Do You Use Your Seat Belt Or Car Seat Routinely? Yes Information not available 05/22/2023 Do You Have Smoke And Carbon Monoxide Detectors In Your Home? Yes Information not available 05/22/2023 Do You Use Sunscreen Routinely? Yes In Her Daily Lotion Information not available 05/22/2023 Has Tobacco Cessation Counseling Been Provided? No Information not available 11/27/2023 Sex: Female Functional Status Question Answer Note LastModified by Organizat ion Details LastModified Time Do you use any illicit or recreational drugs? No Information not available 05/22/2023 Do you or have you ever used any other forms of tobacco or nicotine? No Information not available 05/22/2023 What is your level of alcohol consumption? Moderate wine Information not available 05/22/2023 Are you currently employed? Yes Information not available 11/27/2023 Are you able to care for yourself? Yes Information n ot available 05/22/2023 What is your exercise level? Moderate Information not available 05/22/2023 Mental Status Question Answer Note LastModified by Organization D etails LastModified Time Do you feel stressed (tense, restless, nervous, or anxious, or unable to sleep at night)? [id number] Information not available 05/22/2023 Family History Relationship Description Onset Age of this Age Resolved Age Notes LastModified by Organization Details LastModified Time Mother Dementia 98 [email or web address] Not availabl e 06/08/2024 14:58:37 Mother Hypercholest erolemia [email or web address] Not available 2023 16:44:08 Father Dementia [email or web address] Not availabl e 05/22/2023 16:44:02 Medical History Condition Response Coronary Artery Disease N Other N High Blood Pressure N Atrial Fibrillation N Kidney or Bladder Problems N Thyroid Problems Y GI Problems N Depression N COPD N Blood Clots Y Skin Problems N Anemia N Heart Attack (OR) N Anxiety Disorder N Diabetes N Muscle, Joint, or Bone Problems N Seizures/Epilepsy N Acid Reflux (GERD) N Cancer N Stroke N Asthma N Allergies N High Cholesterol Y Hepatitis N Liver Disease N Headaches N Heart Failure N Osteoporosis N Gynecological History Statement/Question Response Menses Monthly N Current Control Method Other Obstetrics History GPAL:G 0 P 0 0 0 0 Immunizations Vaccine Type Date Status Note Provider Nam e and Address Organization Details Recorded Time Influenza, MDCK, quadrivalent, preservative 9 completed Lauro [place], [place] [facility] 11/26/2023 14:11:08 zoster recombinant 8 completed Lauro [place] [facility] 11/26/2023 14:11:08 zoster recombinant 8 completed Lauro [place] [facility] 11/26/2023 14:11:08 Influenza, high-dose, quadrivalent, PF 1 completed Lauro [place] [facility] 11/26/2023 14:11:08 Influenza, adjuvanted, quadrivalent, PF 3 completed ALY [place] [facility] 11/26/2023 14:11:08 Influenza, adjuvanted, quadrivalent, PF 2 completed Lauro [place] [facility] 11/26/2023 14:11:08 COVID-19, mRNA, LNP-S, PF, 100 mcg/0.5mL dose or 50 mcg/0.25mL dose 1 completed [place]uro [place] [facility] 11/26/2023 14:11:08 COVID-19, mRNA, LNP-S, PF, 100 mcg/0.5mL dose or 50 mcg/0.25mL dose 1 completed [place] [facility] 11/26/2023 14:11:08 COVID-19, mRNA, LNP-S, PF, 30 mcg/0.3 mL dose 1 completed [place] [facility] 11/26/2023 14:11:08 COVID-19, mRNA, LNP-S, bivalent, PF, 30 mcg/0.3 mL dose 2 completed [place] [facility] 11/26/2023 14:11:08 Tdap 4 completed [place] [facility] 11/26/2023 14:11:08 Tdap 3 completed [place] [facility] 11/26/2023 14:11:08 DTP 4 completed [place] [facility] 11/26/2023 14:11:08 zoster live 6 completed [place] [facility] 11/26/2023 14:11:08 Influenza, split virus, trivalent, preservative 3 completed [place] [facility] 11/26/2023 14:11:08 Influenza, split virus, trivalent, preservative 4 completed [place] [facility] 11/26/2023 14:11:08 Influenza, split virus, trivalent, PF 6 completed Lauro [place] [facility] 11/26/2023 14:11:08 Influenza, split virus, trivalent, PF 7 completed Lauro Mull[place] [facility] 11/26/2023 14:11:08 Influenza, split virus, trivalent, PF 5 completed Daltonyevgeniyverónica Harpreet [place] [facility] 11/26/2023 14:11:08 Influenza, split virus, quadrivalent, PF 0 [place] [facility] 11/26/2023 14:11:08 Influenza, split virus, quadrivalent, PF 8 completed Lauro Mullins AL[place] escobar[place] [facility] 11/26/2023 14:11:08 Past Encounters Encounter ID Performer Location Encounter Start Date Encounter Closed Date Diagnosis/Indication Diagnosis SNOMED-CT Code Diagnosis ICD10 Code Diagnosis Note [id number] Checo Cruz MD [facility] [address] [place] [address] 05/22/2023 16:18:34 05/22/2023 17:25:00 Hypothyroidism 29822658 E03.9 stable on medication ; refill on synthroid 88mcg daily and due for thyroid function panel. Hyperlipidemia 52098743 E78.5 stable on medication ; refill atorvastat in 20mg daily. fasting lipids ordered Osteopenia 287378942 M85 .80 refill on alendronat e 70mg weekly RX. stable. UTD on dexa scan. vitamin D lab is due. Long-term drug therapy 142498027 Z79.899 routine cbc and bmp and LFT labs are due. [id number] Checo Cruz MD [facility] [address] [place] [address] 11/27/2023 16:21:57 12/02/2023 14:55:08 Hypothyroidism 46284580 E03.9 stable on medication ; refill on synthroid 88mcg daily and due for thyroid function panel. Hyperlipidemia 98209597 E78.5 stable on medication ; refill atorvastat in 20mg daily. fasting lipids ordered Osteopenia 553222767 M85 .80 refill on alendronat e 70mg weekly RX. stable. UTD on dexa scan. vitamin D lab is due. Long-term drug therapy 053504587 Z79.899 routine cbc and bmp and LFT labs are due. Screening for malignant neoplasm of colon 875266032 Z12.11 Patient is due for her routine colonoscop y [id number] Checo Cruz MD [facility] [address] [place] [address] 03/20/2024 08:22:58 03/20/2024 09:26:50 Body mass index less than 20 612221936 Z68.1 19.7 BMI Perioral d ermatitis with periocular dermatitis 224750878 L71.0 Start triamcinol one acetonide cream 0.025% applied daily in the morning and an ointment version to apply at bedtime. If this does not work we will start doxycyclin e oral antibiotic course [id number] Checo Cruz MD [facility] [address] [place] [address] 06/08/2024 14:52:17 06/08/2024 16:30:53 Hypothyroidism 18735883 E03.9 Stable on synthroid 88mcg daily. Next set of labs will be due in November Hyperlipidemia 27702020 E78.5 stable on medication ; continue atorvastat in 20mg daily. fasting lipids ordered for November Osteopenia [id number] M85 .80 Continue alendronat e 70mg weekly RX. stable. UTD on dexa scan Long-term drug therapy [id number] Z79.899 CBC liver and kidney function panel ordered for November Body mass index less than 20 [id number] Z68.1 19.6 BMI Health Concerns Section Related Observation LastModified by Organization Detai ls LastModified Time None Recorded Concern Status LastModified by Organization Details LastModified Time None Recorded Advance Directives Directive None Recorded Payers Encounter Date Sequence Insurance Name Policy Number Policy Cottrell Covered Member ID Cottrell Member ID Guarantor Name 05/22/2023 1 [place] Ashley Charles [id number] Ashley Charles 05/22/2023 2 AETNA Ashley Charles [id number] Ashley Charles 11/27/2023 1 [place] Ashley Charles [id number] Ashley Charles 11/27/2023 2 [employer] (MEDICARE SUPPLEMENT) Ashley Charles [id number] Ashley Charles 03/20/2024 1 [place] Charles [id number] Ashley Charles 03/20/2024 2 [employer] (MEDICARE SUPPLEMENT) Ashley Charles [id number] Ashley Charles 06/08/2024 1 [place] Ashley Charles [id number] Ashley Charles 06/08/2024 2 [employer] (MEDICARE SUPPLEMENT) Ashley Charles [id number] Ashley Charles Notes Date Note Type Note Provider Name and Address Organization Details Recorded Time 4 text/html Generic HPI TemplateReported bypatient.Notes:osteopenia hx. on alendronate weekly dosing. no c/o. UTD On dexa scan.HyperlipidemiaReported bypatient.Notes:stable on statin therapy, due for fasting labs and refillThyroidReported bypatient.Notes:stable on levothyroxine 88mcg daily. due for updated labs AMADA Torres Attn: Accounting,[address], [place], [address], [place] 06/10/2023 19:24:04 4 text/html Generic HPI TemplateReported bypatient.Notes:osteopenia hx. on alendronate weekly dosing. no c/o. UTD On dexa scan.HyperlipidemiaReported bypatient.Notes:stable on statin therapy, due for fasting labs and refillThyroidReported bypatient.Notes:stable on levothyroxine 88mcg daily. due for updated labs AMADA Torres Attn: Accounting,[address], [place], [address], [place] 11/28/2023 17:46:19 5 text/html General Rash/Skin LesionReported bypatient.Location:face Quality:not painful;itchy;red Severity:worsening (in a few spots) Duration:has noted for 2-3 weeks Onset/Timing:recurring (states she had this before some years ago) Context:no new detergents or skin products; no one else with similar rash Alleviating factors:nothing gives relief; Has tried aquaphor Aggravating factors:worse after she showers and cleans her face Associated Symptoms:no fever; no cold symptoms; no nausea; no vomiting; no diarrhea; no urinary symptoms AMADA Torres Attn: Accounting,[address] [facility], [place], [address], [facility] [place] 04/11/2024 12:01:43 5 text/html Generic HPI TemplateReported bypatient.Notes:osteopenia hx. on alendronate weekly dosing. no c/o. UTD On dexa scan.HyperlipidemiaReported bypatient.Notes:stable on statin therapyThyroidReported bypatient.Notes:stable on levothyroxine 88mcg daily. due for updated labs Labs are up-to-date for review AMADA Torres Attn: Accounting,[address] [facility], [place], [address], [facility] [place] 06/21/2024 22:03:51 OBGyn Episode No OBEpisode recorded.
--- OUTSIDE RECORDS SUMMARY | 2024-07-13 07:32 | XMS_ITS | Clinical Summary ---
Author Organization [facility] Address 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 This disclosure is being madepursuant to the Care Everywhere program and may not contain all information available regarding this patient. 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 [employer] Gender Identity Not on file Sexual Orientation Not on file Plan of Treatment Health Maintenance Due Date Last Done Comments BONE DENSITY TESTING 1955 COLOGUARD (AGES 45-75) - COL ON CA SCREENING 1955 COLON MONITORING 1955 COLONOSCOPY - COLON CA SCREENING 1955 CT COLONOGRAPHY - COLON CA SCREENING 1955 Colorectal Cancer Screening 1955 FIT - COLON CA SCREENING 1955 FLEX SIG - COLON CA SCREENING 1955 LIPID TESTING 1955 MAMMOGRAM 1955 HEPATITIS C SCREENING 07/14/1973 DTAP/TDAP/TD VACCINES (1 - Tdap) 07/18/1974 PNEUMOCOCCAL VACCINE 50+ (1 of 1 - PCV) 07/18/2005 ZOSTER VACCINE (1 of 2) 07/18/2005 COVID-19 VACCINE ( - 2023-2 5 season) 2023 DEPRESSION SCREENING 02/12/2024 INFLUENZA VACCINE (Season Ended) 2024 Respiratory Syncytial Virus (RSV) Vaccine Pt: or over 60 yrs (1 - 1-dose 75+ series) 07/18/2030 HEPATITIS B VACCINE Aged Out No longe r eligible based on patient's age to complete this topic HIB VACCINE Aged Out No longer eligi ble based on patient's age to complete this topic HPV VACCINE Aged Out No longer eligi ble based on patient's age to complete this topic MENINGOCOCCAL (Group B) VACC INE SHARED DECISION-MAKING Aged Out No longer eligibl e based on patient's age to complete this topic MENINGOCOCCAL GROUPS A/C/Y/W VACCINE Aged Out No longer eligible b ased on patient's age to complete this topic Insurance
--- OUTSIDE RECORDS SUMMARY | 2024-07-13 07:32 | XMS_ITS | Encounter Summary ---
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 Phone Unavailable Primary Care Provider Unavailabl e Encounter Details Date Type Department Care Team (Late st Contact Info) Description 01/22/2019 Lab Requisition [facility] DermPath Lab [address] [place] [address] Niraj Seaman MD [address] [place] [address] Social History Tobacco Use Types Packs/Day Years Used Date Smoking Tobacco: Never Assessed Comments Unknown Sex and Gender Information Value Date Recorded Sex Assigned at Not on file 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 Gender Identity Not on file Sexual Orientation Not on file documented as of this encounter Plan of Treatment Not on file documented as of this encounter Procedures Procedure Name Priority Date/Time Associated Diagnosis Comments DERMATOPATHOLOGY Routine 01/21/2019 12:0 0 AM HIRED HELP documented in this encounter Results * DERMATOPATHOLOGY (01/21/2019 12:00 AM HIRED HELP) Case Report Dermatopathology Report Case: [id number] Authorizing Provider: Niraj Seaman MD Collected: 01/21/2019 12:00 AM Ordering Location: [facility] Derm[facility] Lab Received: 01/22/2019 12:08 PM Pathologist: Pavel Meraz MD Specimens: A) - Skin, lower left ant rib cage B) - Skin, right sup lat calf 9 5:11 PM HIRED HELP DERMATOPATHOLOGY LABORATORY Final Diagnosis Specimen A. 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 DERMATOPATHOLOGY LABORATORY at [address] [facility] Clinical History A-B: R/O dys nevus. 9 5:[address] [facility] DERMATOPATHOLOGY LABORATORY Gross Description Specimen A: Received is one formalin filled container labeled with the patient's name and designated lower left ant rib cage. The specimen consists of a shave biopsy measuring [id number]. Jar 0. Specimen B: Received is one formalin filled container labeled with the patient's name and designated right sup lat calf. The specimen consists of a shave biopsy measuring [id number]. Jar 0. 5:[address] [facility] DERMATOPATHOLOGY LABORATORY Microscopic Description Specimen A. SKIN, lower left ant rib cage: This is a junctional nevus. There is architectural disorder characterized by a lentiginous proliferation of melanocytes between irregular nests of cells along the dermal-epidermal junction, highlighted by MART-1/Melan-A immunohistochemical staining. There is underlying fibroplasia of the papillary dermis. Original and deeper sections were reviewed. (Junctional Orlando's Nevus or Junctional Dysplastic Nevus) Sections also show abundant melanin within melanophages around the superficial vascular plexus with admixed lymphocytes consistent with regression. Specimen B. SKIN, right sup lat calf: This is a junctional nevus. There is architectural disorder characterized by a lentiginous proliferation of melanocytes between irregular nevus nests of cells along the dermal-epidermal junction. There is underlying lamellar fibroplasia of the papillary dermis. (Junctional Orlando's Nevus or Junctional Dysplastic Nevus) 9 5:[address] [facility] DERMATOPATHOLOGY LABORATORY Disclaimer An external and internal positive and negative controls are appropriate for the histochemical, immunohistochemical and immunofluorescence stain(s) in this case (if any), except where stated explicitly. The performance characteristics of the stain(s) cited in this report were developed and its performance characteristic determined by the Dermatopathology Laboratory at [facility], directed by Dr. Zuleyma Meraz. These tests need not be, and therefore are not, approved by the [place] Food and Drug Administration. The tests are used for clinical purposes. Billing Codes Specimen Charges Stain Charges 43240 76239 1 1 22831 1 9 5:11 PM [facility]IRED [facility]P DERMATOPATHOLOGY LABORATORY Embedded Images 9 5:11 PM [facility] DERMATOPATHOLOGY LABORATORY Pathology/Cytology TISSUE SPECIMEN FROM SKIN / Unknown 01/21/2019 01/22/2019 12:08 PM HIRED HELP Miscellaneous samples (specimen) TISSUE SPECIMEN FROM SKIN / Unknown 01/21/2019 01/22/2019 12:08 PM HIRED HELP us Niraj Seaman MD LAB - PATHOLOGY/CYTOLOGY ORD ERABLES Final Result DERMATOPATHOLOGY LABORATORY [facility] - Department of Dermatology [address] [place] [address], [address] [phone] documented in this encounter Visit Diagnoses Not on filedocumented in this encounter
[2024-07-13 07:40] VITALS: BP 123/73; PULSE 63; RESP 18; TEMP 36.7; O2SAT 100
[2024-07-13] MEDS: LACTATED RINGERS 1,000 ML 150 ML IV CONT (08:00)
--- NOTE | 2024-07-13 08:58 | PM.IMHP ---
H&P: HPI History of Present Illness Date/Time: 07/13/24 08:58 Chief Complaint: Screening colonoscopy Narrative: This is the patient's third colonoscopy. the last colonoscopy was more than 10 years ago. There are no GI symptoms and there is no family history of colorectal cancer. Review of Systems Review of Systems: All systems reviewed & are unremarkable except as noted in HPI and below PMFSH Past Medical History Medical History Anemia Hypothyroid UTI (urinary tract infection) DVT (deep venous thrombosis) HLD (hyperlipidemia) Surgical History Surgical History H/O right inguinal hernia repair 03/30/22 Right inguinal hernia repair with PerFix Light plug and patch Family History Family History Other Family history of seizure disorder Social History Social History Social History: Caffeine- coffee daily Smoking status: Never smoker Second hand tobacco smoke exposure: No Alcohol intake: current Drinks per week: 7 Alcohol use details: WINE Substance use: never Substance use type: does not use Living arrangements: with family Additional living arrangements comments: Gender identity (if verbalized by the patient): Female Spiritual care concerns: No Meds Home Medications and Allergies Home Medications ?Medication ?Instructions ?Recorded ?Confirmed ?Type alendronate 70 mg tablet 70 mg PO WEEKLY 05/11/19 07/13/24 History atorvastatin 20 mg tablet 20 mg PO EVERY OTHER DAY 05/11/19 07/13/24 History aspirin 81 mg tablet,delayed 81 mg PO HS 03/23/22 07/13/24 History release calcium 600 mg (as 1 tablet PO DAILY 03/23/22 07/13/24 History carbonate)-vitamin D3 5 mcg (200 unit) tablet cholecalciferol (vitamin D3) 25 25 mcg PO DAILY 03/23/22 06/23/24 History mcg (1,000 unit) capsule cyanocobalamin (vitamin B-12) 500 500 mcg PO DAILY 03/23/22 07/13/24 History mcg tablet estradiol 10 mcg vaginal insert 10 mcg vaginal 2XW 03/23/22 07/13/24 History ciprofloxacin HCl 500 mg tablet 500 mg PO DAILY 10/15/23 07/13/24 History ibuprofen 800 mg tablet 800 mg PO Q6H PRN pain #30 tabs 10/15/23 07/13/24 Rx levothyroxine 88 mcg tablet 88 mcg PO DAILY 10/15/23 07/13/24 History Allergies Allergy/AdvReac Type Severity Reaction Status Date / Time No Known Allergies Allergy Verified 07/13/24 08:21 Vital Signs Vital Signs - 24 hr 07/13/24 07:40 Temperature 98.1 F Pulse Rate 63 Respiratory Rate 18 Blood Pressure 123/73 Pulse Oximetry 100 Oxygen Delivery Room Air Exam Const: General: cooperative and healthy appearing Resp: Effort & Inspection: normal respiratory effort and able to speak in complete sentences Auscultation: clear to auscultation bilaterally Cardio: Rate: regular rate Rhythm: regular rhythm GI: Inspection: normal to inspection GI Palp: No No hepatosplenomegaly present Auscultation: normal bowel sounds Rectal Exam: deferred Skin: General skin exam: normal color Psych: Appearance: grossly normal Mental Status: mental status grossly normal Assessment and Plan Assessment and plan (1) Encounter for screening colonoscopy: Code(s): Z12.11 - Encounter for screening for malignant neoplasm of colon Status: Acute Assessment and Plan: The patient is deemed a good candidate for the procedure. Consent signed. Will proceed.
[2024-07-13 09:30] VITALS: BP 100/64; PULSE 74; RESP 14; O2SAT 95
[2024-07-13 09:40] VITALS: BP 106/77; PULSE 78; RESP 14; O2SAT 100
[2024-07-13 09:50] VITALS: BP 106/60; PULSE 61; RESP 16; O2SAT 100
--- NOTE | 2024-07-13 11:41 | WPDANESPN ---
Anes - Prog Note Post-Op Date/Time: 07/13/24 11:41 Cardiovascular status: normal Respiratory status: normal Airway patency: baseline Mental status: baseline Post-Op hydration status: normal Vital Signs: Last Vital Signs Temp 36.7 C 07/13/24 07:40 Pulse 61 07/13/24 09:50 Resp 16 07/13/24 09:50 BP 106/60 07/13/24 09:50 Pulse Ox 100 07/13/24 09:50 O2 Del Method Room Air 07/13/24 09:50 Pain Score (VAS): 0 I/O: Intake & Output 07/12/24 07/13/24 07/13/24 23:59 07:59 15:59 Intake Total 700 Balance 700 Post-procedural complaints: none Patient Feedback: Patient satisfied with anesthetic care. Other Findings: Patient vital signs back to baseline. Patient denies nausea and vomiting. Patient's pain under control. Patient OK for discharge.
== END 2024-07-13 10:03 | disposition home or self-care (01) ==
PROVIDERS: PCP Physician Assistant; Referring Provider Physician Assistant; Visit Provider Internal Medicine Gastroenterology
PROC: 0DJD8ZZ Inspection of Lower Intestinal Tract, Via Natural or Artificial Opening Endoscopic (ICD-10-PCS; CPT 45378; principal; 2024-07-13 09:00)
DX: Z12.11 Encounter for screening for malignant neoplasm of colon (principal)
CPT/HCPCS: G0121

== ENCOUNTER 2024-09-14 12:44 | Outpatient (CLI) | payer MEDICARE, SELFPAY ==
--- NOTE | ~2024-09-14 | MR_ITS ---
MRI of the right hip Clinical history: Trochanteric bursitis Technique: Coronal T1-weighted, T2-weighted, and proton-density fat-sat images, and axial T1-weighted and proton-density fat-sat images were acquired through the pelvis. Coronal T2-weighted images and c oronal, axial, and sagittal proton-density fat-sat images were acquired through the right hip. Findings: There is no fracture or avascular necrosis of either hip. Bone marrow signals the proximal femora and pelvic bones are unremarkable. Bilateral hip joint spaces are intact. No joint effusion se en. No right acetabular labral tear evident. Visualized musculature about the pelvis and right hip is unremarkable. No muscle atrophy or edema. Vi sualized tendons are intact. No soft tissue mass or fluid collection. No distinct evidence for bursit is. IMPRESSION: No significant abnormality identified. Reviewed, dictated and finalized at [facility].
--- NOTE | ~2024-09-14 | MR_ITS ---
MRI of the lumbar spine Clinical History: Radiculopathy Technique: Axial T2-weighted images, and sagittal T1-weighted, T2-weighted, and T2 fat-sat images wer e acquired. Findings: There is no fracture or subluxation of the lumbar spine. Vertebral bodies maintain normal h eight and alignment. No bone marrow signal abnormality seen. At L1-L2, there is no disc bulge or herniation. No spinal canal stenosis or neural foraminal narrowin g. At L2-L3, there is central disc protrusion. No spinal canal stenosis or neural foraminal narrowing. At L3-L4, there is no disc bulge or herniation. No spinal canal stenosis or neural foraminal narrowin g. At L4-L5, there is minimal disc bulge with mild facet arthropathy. No central canal stenosis. There i s minimal bilateral neural foraminal narrowing. At L5-S1, there is no disc bulge or herniation. There is mild facet arthropathy. No central canal emy nosis or neural foraminal narrowing. Paravertebral soft tissues are unremarkable. Impression: Mild degenerative changes, as above. Reviewed, dictated and finalized at location M. Impression: Mild degenerative changes, as above.
== END 2024-09-14 12:45 | disposition home or self-care (01) ==
LOC: MICIMG 12:47
PROVIDERS: PCP Physician Assistant; Visit Provider Physician Assistant Surgical
DX: M51.369 Other intervertebral disc degeneration, lumbar region without mention of lumbar back pain or lower extremity pain (principal); M70.61 Trochanteric bursitis, right hip
CPT/HCPCS: 72148; 73721

== ENCOUNTER 2024-12-07 13:34 | Outpatient (CLI) | payer MEDICARE, SELFPAY ==
--- NOTE | ~2024-12-07 | MM_ITS ---
EXAMINATION: MM screening lit BI w jeanette HISTORY: Screening TECHNIQUE: Craniocaudal and mediolateral oblique 3-D tomosynthesis images were obtained and synthetic 2-D images were generated. CAD analysis was submitted and interpreted. COMPARISON: Comparison to multiple prior studies sequentially, with oldest reviewed study dated 12/24/2014. BREAST PARENCHYMAL COMPOSITION: Dense: The breasts are heterogeneously dense, which may obscure small masses FINDINGS: There is no evidence of suspicious mass, calcification, or architectural distortion to suggest malignancy in either breast. There has been no suspicious interval change. IMPRESSION: 1. No mammographic evidence of malignancy. 2. Recommend routine screening mammography in one year. BI-RADS Category 1: Negative Reviewed, dictated and finalized at location B.
== END 2024-12-07 13:35 | disposition home or self-care (01) ==
PROVIDERS: PCP Physician Assistant; Visit Provider Obstetrics & Gynecology Gynecology
DX: Z12.31 Encounter for screening mammogram for malignant neoplasm of breast (principal)
CPT/HCPCS: 77063; 77067